=== PATIENT | male | born 1960 | race Caucasian/White ===

== ENCOUNTER 2022-05-16 12:57 | Outpatient (RCR) | payer BC, SELFPAY ==
--- OUTSIDE RECORDS SUMMARY | 2022-05-10 09:30 | XMS_ITS | Continuity of Care Document ---
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 Medications Medication Status Dose Units Route Directions Qty Days Start End Ins tructions Date Date Acetaminophen Active 325-65 MG PO Every 4 100 NO MORE THAN (Tylenol) 325 0 Hours as 400 0 MG/DAY Mg TAB needed Ferrous Active 324 MG PO Daily 100 Gluconate Omeprazole Active 20 MG PO Daily 30 Procedures Procedure Date Performed Status PET IMAGE W/CT SKULL-THIGH April 11, 2022 completed Positron emission tomography April 11, 2022 completed from base of cranium to mid-thigh Relevant Diagnostic Tests and/or Laboratory Data Laboratory Results Test Date/Time Result Interpretation Reference Result Comment Performing Range Site White Blood April 16, 3.89 5.00-10.00 [facility] Count 2021 1999 [facility] 9:32am [facility] [address] Red Blood Count April 16, 4.82 4.32-5.72 [facility] 2021 [address] [facility] 9:32am [facility] [address] Hemoglobin April 16, 13.6 13.5-17.5 [facility] 2021 [address] [facility] 9:32am [facility] [address] Hematocrit April 16, 42.3 38.8-50.0 [facility] 2021 [address] [facility] 9:32am [facility] [address] Mean April 16, 88 81-95 [facility] Corpuscular 2021 1999 [facility] Volume 9:32am [facility] [address] Mean April 16, 28 27-34 [facility] Corpuscular 2021 [address] [facility] Hemoglobin 9:32am [place] [address] Mean April 16, 32 32-36 [facility] Corpuscular 2021 [address] [facility] Hemoglobin 9:32am [place] [address] Concent Platelet Count April 16, 199 150-450 [facility] 2021 [address] [facility] 9:32am [place] [address] RDW Coefficient April 16, 15.8 11.5-15.3 [facility] of Variation 2021 [facility] 9:32am [place] [address] Neutrophils (%) April 16, 52.5 50.0-70.0 [facility] (Auto) 2021 [address] [facility] 9:32am [place] [address] Lymphocytes (%) April 16, 34.7 25.0-45.0 [facility] (Auto) 2021 [address] [facility] 9:32am [facility] [address] Monocytes (%) April 16, 10.0 0.00-11.0 [facility] (Auto) 2021 [address] [facility] 9:32am [facility] [address] Eosinophils (%) April 16, 2.3 0.0-7.0 [facility] (Auto) 2021 [address] [facility] 9:32am [place] [address] Basophils (%) April 16, 0.5 0.0-3.0 [facility] (Auto) 2021 [address] [facility] 9:32am [place] [address] Immature April 16, 0.0 [facility] Granulocyte % 2021 1999 [facility] (Auto) 9:32am [place] [address] Neutrophils # April 16, 2.04 1.70-7.00 [facility] Lab (Auto) 2021 [address] [facility] 9:32am [place] [address] Lymphocytes # April 16, 1.35 0.90-2.90 [facility] Lab (Auto) 2021 [address] [facility] 9:32am [place] [address] Monocytes # April 16, 0.39 0.30-0.90 [facility] Lab (Auto) 2021 [address] [facility] 9:32am [facility] [address] Eosinophils # April 16, 0.09 0.00-0.50 [facility] (Auto) 2021 [address] [facility] 9:32am [place] [address] Basophils # April 16, 0.02 0.00-0.20 [facility] (Auto) 2021 [address] [facility] 9:32am [place] [address] Immature April 16, 0.00 [facility] Granulocyte # 2021 [address] [facility] (Auto) 9:32am [facility] [address] Random Glucose April 16, 102 60-115 [facility] 2021 [address] [facility] 9:32am [facility] [address] Blood Urea April 16, 17 7-30 [facility] Nitrogen 2021 [address] [facility] 9:32am [facility] [address] Creatinine April 16, 1.0 0.5-1.5 [facility] 2021 [address] [facility] 9:32am [facility] [address] Estimated April 16, 62.406 [facility] Creatinine 2021 1999 [facility] Clearance 9:32am [facility] [address] Sodium Level April 16, 137 135-149 [facility] 2021 [address] [facility] 9:32am [facility] [address] Potassium Level April 16, 4.5 3.6-5.1 [facility] 2021 [address] [facility] 9:32am [facility] [address] Chloride Level April 16, 104 96-114 [facility] 2021 [address] [facility] 9:32am [facility] [address] Carbon Dioxide April 16, 27 20-32 [facility] Level 2021 [address] [facility] 9:32am [facility] [address] Calcium Level April 16, 8.6 8.4-10.6 [facility] 2021 [address] [facility] 9:32am [facility] [address] Total Protein April 16, 6.4 6.0-8.3 The use of [facility] 2021 Eltrombopag, a [address] [facility] 9:32am bone [place] [address] stimulant used to treat thrombocytopenia and aplastic anemia, interferes with this measurement of total protein. A 5% bias has been observed. Albumin April 16, 4.1 3.3-5.0 [facility] 2021 [address] [facility] 9:32am [facility] [address] Total Bilirubin April 16, 0.5 0.1-1.5 [facility] 2021 [address] [facility] 9:32am [facility] [address] Aspartate Amino April 16, 36 12-35 [facility] Transf 2021 [address] [facility] (AST/SGOT) 9:32am [place] [address] Alanine April 16, 33 4-50 [facility] Aminotransferas 2021 [address] [facility] e (ALT/SGPT) 9:32am [facility] [address] Alkaline April 16, 93 40-150 [facility] Phosphatase 2021 1999 [facility] 9:32am [facility] [address] Thyroid April 16, 1.960 0.270-4.20 Patients taking a N [facility] Stimulating 2021 0 high dose 1999 [facility] Hormone (TSH) 9:32am (>5mg/day) of No [facility] [address] Biotin supplement (vitamin B7) will demonstrate a >10% negative bias for TSH testing. Diagnostic Imaging Reports Report Dictated Date/Time Dictated By Status April 15, 2022 10:44am Joycelyn Meadows DO comp leted [facility] [address] [place] [address] ~DEPARTMENT OF DI AGNOSTIC IMAGING~ Patient: ANDRY CLARK MR #: [id number] : 1960 Age: 61 Sex: M Ordering MD: Amado Najera MD Rm/Be d: Loc: RAD Report #: [id number] Si gned DATE: 04/11/22 NM/STANDARD BODY PET/CT / Patient: ANDRY CLARK Facility:??[facility] Hafsa marcus ID:??[id number] .Site [id number].:??1960tudy:??PET -Chest/Abd/Pelvis-04/11/2022 5:48:58 PMOrdering Physician:??Dania FischerFinal Report:EXAM:PET-CT SKULL BASE TO THIGHCLINICAL INFORMATION:61-yo male wit h a history of esophageal cancer. Prior chemotherapy and radiation. Patient is r eferred for further characterization/restaging.TECHNIQUE:Rad iopharmaceutical: 14.15 mCi of 18F- FDGUptake time: 63 minutesBlood glucose level at the time of injection: 83 mg/dLField of view: Skull base to mid-th ighsIntravenous contrast: Not administeredOral contrast: Not administe redCT protocol: The low-dose, free- breathing, noncontrast CT performed as p art of this study is designed for the purposes of attenuation correction and l esion localization, and it is neither sufficient, nor it should be substituted for diagnostic purposes.COMPARISON:[facility] PET[facility]CT 09/06[facility]. [facility] chest abdomen and pelvis 08/24/2021FINDINGS:Physiologic backgroun d liver standardized uptake value (SUV mean and SUV max) reported for compariso n between PET studies: 2.8 and 3.5.Visualized head and neck: Physiologi c uptake in the visualized portions of the brain, extraocular muscles, and sali vary glands.Head and neck lymph nodes: New/increased uptake within nonenlarged left level 1 lymph nodes is nonspecific, possibly reactive/inflammatory. For exam ple:-left level 1B lymph node posterior to the mandible, 0.6 cm short axis, SUV max 3.6 (fused PET-CT image 34)-left level 1B lymph node, 0.6 cm short axis, SUV max 4.9 (fused PET-CT image 38)Lungs: No new tracer avid lung nodule s. Posteromedial left lower lobe nodule is slightly more conspicuous, 0.4 cm, MAI V max 1.0 (fused PET-CT image 108). Prior PET-CT, 0.3 cm (series 3, image 11 3). Additional sub 4 mm nodules in each lung are without significant change thou gh difficult to fully characterize given small size. Attention on follow-up.Thora cic lymph nodes: Similar nonenlarged low left neck and high mediastinal lymph nod es with mild uptake. No progressive mediastinal, hilar or axillary lymphaden opathy.Other chest findings: Physiologic myocardial uptake. Scattered coronary va scular and thoracic aortic calcifications. Right chest port with ti p positioned at the cavoatrial junction.-persistent distal esophageal w all thickening proximal to a hiatal hernia with decreased uptake, difficult to measure, SUV max 9.3 (fused PET-CT image 109). Previously reported SUV max 50. Currently, I am not able to recheck prior SUV max on the images provided for comparison. Craniocaudal extent of uptake approximately 3 cm.Hepatobiliary: No abnormal uptake.Spleen: No abnormal uptake.Pancreas: No abnormal uptake.Adre nals: No abnormal uptake.Kidneys and bladder: No abnormal uptake. Bladder is under distended giving the appearance of wall thickening.Bowel and peritoneum: No suspicious gastric, small bowel or proximal colon uptake or abnormality. Pe rsistent circumferential uptake at the level of the lower anal canal/sphincter is nonspecific, possibly physiologic, SUV max 9.6. Scattered colonic diverticu la without inflammatory change.Pelvic organs: No abnormal uptake.Abdominopelvi c lymph nodes: No hypermetabolic abdominopelvic lymph nodes.Musculoskelet al, soft tissues, skin: No suspicious osseous lesions or abnormal uptake. Rela tive photopenia within the marrow containing spaces of lower thoracic spin e be consistent with fatty marrow replacement in the setting of prior radi ation therapy degenerative uptake in both shoulders and spine.Other: Mild aor toiliac atherosclerotic vascular calcifications. Fat containing inguinal hernias. Small bilateral hydroceles.IMPRESSION:1. Distal esophage al wall thickening with decreased extent and degree of uptake compared to prior c onsistent with response to therapy. Persistent esophageal uptake may in part be due to post treatment change though residual viable tumor not excluded. No n ew hypermetabolic mediastinal, upper abdominal or retroperitoneal lymphadenop athy.2. New/increased uptake within nonenlarged left level 1B lymph nodes is considered nonspecific, possibly reactive/inflammatory. Attention on foll ow-up3. Slightly more conspicuous small nodule in the medial left lung base with out suspicious uptake.4. Persistent circumferential uptake involving the low er anal canal/sphincter is similar to priors. Correlate with physical exam and symptoms.5. No suspicious osseous uptake or abnormality. Posttherapy ornelas es with fatty marrow replacement in the lower thoracic spine.6. Other incidental findings as detailed in the body of the report.Dictated by Joycelyn Meadows MD @ 10:44:45 PMSigned by:??Joycelyn Meadows MD @04/15/2022 10:44:45 PM(Electro cleopatra Signature) Dictated By: JOYCELYN MEADOWS DO Signed By: JOYCELYN MEADOWS DO Insurance Providers Guarantor Andry Clark Address [address] [place] [id number] Contact Info. Home Phone: MARVIN Payer Policy Id Coverage Id Subscriber's Subscriber Id Effective E xpiration Name Date Date Blue [id number] Andry Clark [facility] [id number] Encounters Encounter Location(s) Arrival/Admit Date Discharge/Depart Date Provider(s) Registered [place] April 18, 2022 Giovanna Spence [facility] 7:05am Kayla LICENSE DISTRIBUTOR-C Registered [place] April 11, 2022 [facility] 1:39pm Recent Diagnosis Onset Date Adenocarcinoma of gastroesophageal junction Assessments Diagnosis Onset Date Resolution Status Adenocarcinoma of Active gastroesophageal junction
[2022-05-16 14:13] LABS: Basophils Percent Auto 0.5 % (0.0-3.0); Hematocrit 41.4 % (37.0-53.0); Hemoglobin* 13.3 gm/dL (13.5-17.5); Lymphocytes Percent Auto 35.1 % (20-44); Mean Corpuscular HGB Conc 32 gm/dL (32-36); Mean Corpuscular Hemoglobin 29 pg (26-34); Mean Corpuscular Volume 89 fL (80-100); Monocytes Percent Auto 8.5 % (0.0-11.0); Neutrophils Percent Auto 54.9 % (42.0-72.0); Platelet Count* 187 K/uL (140-440); Red Blood Count 4.67 m/uL (4.30-5.90); White Blood Count* 4.13 K/uL (4.50-11.00)
[2022-05-16 14:16] LABS: Slide Review Reflex No
[2022-05-16 14:41] LABS: Chloride* 107 mmol/L (96-114); Potassium* 3.9 mmol/L (3.6-5.1); Sodium* 136 mmol/L (135-149)
[2022-05-16 14:43] LABS: Bilirubin Total* 0.7 mg/dL (0.1-1.5); Creatinine* 0.9 mg/dL (0.5-1.5); Est. Creatinine Clearance* 61.64; Estimated Glomerular Filt Rate 96.57
[2022-05-16 14:44] LABS: Alanine Aminotransferase* 32 U/L (4-50); Alkaline Phosphatase* 83 U/L (40-150); Aspartate Amino Transferase* 34 U/L (12-35); Blood Urea Nitrogen* 22 mg/dL (7-30); Calcium* 8.8 mg/dL (8.4-10.6); Carbon Dioxide* 24 mmol/L (20-32); Glucose* 91 mg/dL (60-115); Total Protein* 6.3 g/dL (6.0-8.3)
[2022-05-16] MEDS: NIVOLUMAB 480 MG, TUBING PRIMARY 1 EACH, In-line 0.2 micron filter set 1 EACH in 0.9 % ... 148 MG IVPB (15:27)
[2022-05-18 01:34] LABS: Cortisol, Serum 6.1 ug/dL
== END 2022-05-16 23:59 | disposition home or self-care (01) ==
LOC: CCIC 12:57
PROVIDERS: Clinical Nurse Specialist; Visit Provider Nurse Practitioner Family
DX: C15.4 Malignant neoplasm of middle third of esophagus (principal)
CPT/HCPCS: 36415; 36591; 80053; 82533; 84443; 85025; 96413; 99212; 99214; J9299

== ENCOUNTER 2022-06-13 13:22 | Outpatient (RCR) | payer BC, SELFPAY ==
--- NOTE | 2022-06-10 15:09 | ONC.NURNOTE ---
Authorization: User: Gisele Bush Date: 04/18/22 07:04 Type: Eligibility Determination Note... Request received from [facility] for prior authorization of Nivolumab [id number]. Patient carries [employer] as primary insurance. Per [employer] Nivolumab has been approved for 480 Units(this equals 480 mg) per visit from 04/16/2022 through 04/18/2023. Authorization #[id number]
[2022-06-13 14:03] VITALS: BP 116/76; PULSE 54; RESP 16; TEMP 36.3; O2SAT 98
[2022-06-13 14:06] LABS: Basophils Percent Auto 0.7 % (0.0-3.0); Eosinophils Percent Auto 0.9 % (0.0-7.0); Hematocrit 39.9 % (37.0-53.0); Hemoglobin* 13.3 gm/dL (13.5-17.5); Immature Granulocytes Abs Auto 0.01 K/uL (0.00-0.30); Lymphocytes Percent Auto 31.6 % (20-44); Mean Corpuscular HGB Conc 33 gm/dL (32-36); Mean Corpuscular Hemoglobin 29 pg (26-34); Mean Corpuscular Volume 88 fL (80-100); Monocytes Percent Auto 10.1 % (0.0-11.0); Neutrophils Percent Auto 56.5 % (42.0-72.0); Platelet Count* 203 K/uL (140-440); RDW Coefficient of Variation % 14.1 % (11.5-15.5); Red Blood Count 4.54 m/uL (4.30-5.90); Slide Review Reflex No; White Blood Count* 4.34 K/uL (4.50-11.00)
[2022-06-13 14:07] LABS: Albumin* 3.9 g/dL (3.3-5.0); Chloride* 104 mmol/L (96-114); Sodium* 136 mmol/L (135-149)
[2022-06-13 14:08] LABS: Potassium* 3.7 mmol/L (3.6-5.1)
[2022-06-13 14:10] LABS: Alkaline Phosphatase* 94 U/L (40-150); Aspartate Amino Transferase* 38 U/L (12-35); Bilirubin Total* 0.5 mg/dL (0.1-1.5); Blood Urea Nitrogen* 18 mg/dL (7-30); Carbon Dioxide* 26 mmol/L (20-32); Estimated Glomerular Filt Rate 85 ml/min; Total Protein* 6.7 g/dL (6.0-8.3)
[2022-06-13 14:11] LABS: Alanine Aminotransferase* 42 U/L (4-50); Calcium* 8.9 mg/dL (8.4-10.6); Glucose* 90 mg/dL (60-115)
[2022-06-13] MEDS: NIVOLUMAB 480 MG, TUBING PRIMARY 1 EACH, In-line 0.2 micron filter set 1 EACH in 0.9 % ... 148 MG IVPB (14:56)
[2022-06-14 12:53] LABS: Cortisol, Serum 5.6 ug/dL
== END 2022-06-16 23:59 | disposition home or self-care (01) ==
LOC: CCIC 13:22
PROVIDERS: Clinical Nurse Specialist; Visit Provider Nurse Practitioner Family
DX: C16.0 Malignant neoplasm of cardia (principal)
CPT/HCPCS: 36415; 36591; 80053; 82533; 84443; 85025; 96413; J9299

== ENCOUNTER 2022-08-19 15:49 | Outpatient (CLI) | payer BC, SELFPAY ==
--- NOTE | 2022-08-19 16:00 | CRLHL7_ITS ---
For Patients: As a result of the Century Cures Act, medical imaging exams and procedure reports are released immediately into your electronic medical record. You may view this report before your referring provider. If you have questions, please contact your health care provider. Indication: Metastatic esophageal cancer Technique: Contrast CT chest abdomen and pelvis Comparison: CT chest abdomen 08/24/2021 PET-CT 04/11/2022 Findings: Normal caliber thoracic aorta. The heart size is normal. There is no pericardial effusion. There is no mediastinal or hilar adenopathy seen. There is no pleural effusion. A 3 millimeter pulmonary nodule along the right major fissure series 3, image 62 is unchanged. 9 millimeter irregular nodular density medial left lower lobe on series 3, image 75 new attention and follow-up could be an area of nodular atelectasis. Subtle 8 millimeter ground-glass nodule left lower lobe series 3, image 73 is unchanged from 08/24/2021. Again seen is distal esophageal wall thickening without significant change. The spleen adrenal glands pancreas unremarkable liver unremarkable gallbladder unremarkable. No abdominal aortic aneurysm kidneys are unremarkable. Mildly enlarged lymph node adjacent to the left of the celiac axis is no longer seen. No adenopathy is visualized. Small fat containing inguinal hernias. Prostate gland slightly prominent. Urinary bladder unremarkable the bowel is unremarkable No suspicious bony lesions are seen. Impression: 1. Distal esophageal wall thickening without change. 2. 9 millimeter irregular nodular density medial left lower lobe new could be an area of nodular atelectasis attention on follow-up. 8 millimeter ground-glass nodule left lower lobe and 3 millimeter right lower lobe pulmonary nodule are unchanged from 2020 . 3. No findings for metastatic disease in the abdomen or pelvis. Please note that all CT scans at this facility use dose modulation, iterative reconstruction, and/or weight-based dosing when appropriate to reduce radiation dose to as low as reasonably achievable. Dictated by Jena Gil MD @ 08/20/2022 9:32:45 AM (Electronically Signed)
== END 2022-08-19 15:50 | disposition home or self-care (01) ==
LOC: CT 15:50
PROVIDERS: PCP Family Medicine; Visit Provider Nurse Practitioner Family
DX: C16.0 Malignant neoplasm of cardia (principal); R91.8 Other nonspecific abnormal finding of lung field
CPT/HCPCS: 71260; 74177; Q9967

== ENCOUNTER 2022-11-22 14:56 | Outpatient (CLI) | payer BC, SELFPAY ==
--- NOTE | 2022-11-22 16:00 | CRLHL7_ITS ---
For Patients: As a result of the Century Cures Act, medical imaging exams and procedure reports are released immediately into your electronic medical record. You may view this report before your referring provider. If you have questions, please contact your health care provider. Indication: esophageal adenocarcinoma RESTAGING Technique: Postcontrast CT chest, abdomen and pelvis. 96 cc Isovue 370 intravenous contrast. Please note that all CT scans at this facility use dose modulation, iterative reconstruction, and/or weight-based dosing when appropriate to reduce radiation dose to as low as reasonably achievable. Comparison: CT 08/19/2022, CT PET 04/11/2022 Findings: In the chest, distal wall thickening of the esophagus again noted. Adjacent subcentimeter lymph nodes are similar. Stable 3 millimeter nodule right lower lobe, 3/60. Reticular thickening in the paramediastinal lung noted in both lower lobes. No suspicious underlying nodule. Mild dependent atelectasis/scarring. No pleural effusion. No pneumothorax. Visualized thyroid normal. Stable upper limits normal upper mediastinal lymph nodes. No intrinsic osseous lesion. In the abdomen, there is no intrahepatic mass. Gallbladder is normal. No calcified stones or biliary obstruction. Normal pancreas. Spleen normal. Adrenal glands unremarkable. Normal kidneys. Normal ureters. No enlarged retroperitoneal or mesenteric lymph nodes. No bowel obstruction. In the pelvis, the prostate is mildly prominent. The bladder is incompletely distended. No bladder stone. Small left inguinal hernia containing fat. Sigmoid diverticulosis. No diverticulitis. Normal appendix. No pelvic or inguinal adenopathy. Degenerative disc disease L5-S1. Impression: Radiation pneumonitis within the medial lower lobes bilaterally. No suspicious pulmonary nodule. Stable 3 millimeter right lower lobe nodule. Stable subcentimeter upper mediastinal and GE junction lymph nodes. Similar appearance of distal esophageal wall thickening. No intrahepatic mass or intra-abdominal/intrapelvic adenopathy. Please note that all CT scans at this facility use dose modulation, iterative reconstruction, and/or weight-based dosing when appropriate to reduce radiation dose to as low as reasonably achievable. Dictated by Abe Neff MD @ 11/25/2022 9:35:20 AM (Electronically Signed)
== END 2022-11-22 14:57 | disposition home or self-care (01) ==
LOC: CT 14:56
PROVIDERS: PCP Family Medicine; Visit Provider Physician Assistant
DX: C16.0 Malignant neoplasm of cardia (principal); J70.0 Acute pulmonary manifestations due to radiation; R91.1 Solitary pulmonary nodule
CPT/HCPCS: 71260; 74177; T1013; Q9967

== ENCOUNTER 2022-12-27 13:15 | Outpatient (RCR) | payer BC, SELFPAY ==
--- NOTE | 2022-07-08 16:28 | ONC.NURNOTE ---
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 Dior on FridayJul 12 at 0900 for cold symptoms, congestion, runny nose prior to his oncology appt that afternoon and infusion.
[2022-07-12 12:57] LABS: Basophils Absolute Auto 0.02 K/uL (0.00-0.30); Basophils Percent Auto 0.4 % (0.0-3.0); Eosinophils Absolute Auto 0.07 K/uL (0.00-0.50); Eosinophils Percent Auto 1.3 % (0.0-7.0); Hemoglobin* 12.8 gm/dL (13.5-17.5); Immature Granulocytes Abs Auto 0.03 K/uL (0.00-0.30); Lymphocytes Absolute Auto 1.57 K/uL (0.90-2.90); Lymphocytes Percent Auto 29.7 % (20-44); Mean Corpuscular HGB Conc 33 gm/dL (32-36); Mean Corpuscular Hemoglobin 29 pg (26-34); Mean Corpuscular Volume 88 fL (80-100); Monocytes Percent Auto 7.8 % (0.0-11.0); Neutrophils Absolute Auto 3.18 K/uL (1.7-7.0); Neutrophils Percent Auto 60.2 % (42.0-72.0); Platelet Count* 250 K/uL (140-440); RDW Coefficient of Variation % 14.3 % (11.5-15.5); Red Blood Count 4.44 m/uL (4.30-5.90); White Blood Count* 5.28 K/uL (4.50-11.00)
[2022-07-12 13:11] LABS: Slide Review Reflex No
[2022-07-12 13:26] LABS: Albumin* 3.8 g/dL (3.3-5.0); Chloride* 106 mmol/L (96-114); Potassium* 3.9 mmol/L (3.6-5.1); Sodium* 136 mmol/L (135-149)
[2022-07-12 13:28] LABS: Estimated Glomerular Filt Rate 85 ml/min
[2022-07-12 13:29] LABS: Alanine Aminotransferase* 82 U/L (4-50); Alkaline Phosphatase* 162 U/L (40-150); Aspartate Amino Transferase* 62 U/L (12-35); Bilirubin Total* 0.4 mg/dL (0.1-1.5); Blood Urea Nitrogen* 18 mg/dL (7-30); Carbon Dioxide* 26 mmol/L (20-32); Glucose* 102 mg/dL (60-115); Total Protein* 6.4 g/dL (6.0-8.3)
[2022-07-12 13:30] LABS: Calcium* 8.6 mg/dL (8.4-10.6)
[2022-07-12] MEDS: NIVOLUMAB 480 MG, TUBING PRIMARY 1 EACH, In-line 0.2 micron filter set 1 EACH in 0.9 % ... 148 MG IVPB (14:30)
[2022-07-12] MEDS: 0.9 % SODIUM CHLORIDE 250 ml IV (15:02)
[2022-07-12] MEDS: SODIUM CHLORIDE 0.9 % (FLUSH) 10 ML SYRINGE IVF (15:02)
[2022-07-12] MEDS: HEPARIN 500 UNIT/5 ML SYRINGE IVF (15:02)
[2022-07-13 17:11] LABS: Cortisol, Serum 5.5 ug/dL
--- NOTE | 2022-08-09 08:51 | ONC.NURNOTE ---
Food General Manager talked with Janis Irizarry provider from [place] regarding denied PET and plan and decided after review that patient to get CT scan and if needed after that a PET could be attempted again. Left message with daughter Kate regarding plan. Patient to come in today and get scan prior to Md appointment on August 22.
[2022-08-09 11:49] LABS: Basophils Percent Auto 0.7 % (0.0-3.0); Eosinophils Percent Auto 1.2 % (0.0-7.0); Hematocrit 40.6 % (37.0-53.0); Hemoglobin* 13.6 gm/dL (13.5-17.5); Lymphocytes Percent Auto 33.6 % (20-44); Mean Corpuscular HGB Conc 34 gm/dL (32-36); Mean Corpuscular Hemoglobin 30 pg (26-34); Mean Corpuscular Volume 88 fL (80-100); Monocytes Percent Auto 7.4 % (0.0-11.0); Neutrophils Percent Auto 57.1 % (42.0-72.0); Platelet Count* 201 K/uL (140-440); RDW Coefficient of Variation % 14.2 % (11.5-15.5); Red Blood Count 4.61 m/uL (4.30-5.90)
[2022-08-09 11:52] LABS: Slide Review Reflex No
[2022-08-09 12:10] LABS: Albumin* 4.2 g/dL (3.3-5.0); Chloride* 106 mmol/L (96-114); Potassium* 3.8 mmol/L (3.6-5.1); Sodium* 137 mmol/L (135-149)
[2022-08-09 12:12] LABS: Estimated Glomerular Filt Rate 85 ml/min
[2022-08-09 12:13] LABS: Alanine Aminotransferase* 44 U/L (4-50); Alkaline Phosphatase* 103 U/L (40-150); Aspartate Amino Transferase* 45 U/L (12-35); Bilirubin Total* 0.7 mg/dL (0.1-1.5); Blood Urea Nitrogen* 22 mg/dL (7-30); Calcium* 8.9 mg/dL (8.4-10.6); Carbon Dioxide* 25 mmol/L (20-32); Glucose* 92 mg/dL (60-115); Total Protein* 6.6 g/dL (6.0-8.3)
[2022-08-09 13:12] VITALS: BP 127/75; PULSE 53; RESP 16; TEMP 36.8; O2SAT 97
[2022-08-09] MEDS: NIVOLUMAB 480 MG, TUBING PRIMARY 1 EACH, In-line 0.2 micron filter set 1 EACH in 0.9 % ... 296 MG IVPB (13:24)
[2022-08-09] MEDS: 0.9 % SODIUM CHLORIDE 250 ml IV (13:56)
[2022-08-09] MEDS: HEPARIN 500 UNIT/5 ML SYRINGE IVF (13:56)
[2022-08-09] MEDS: SODIUM CHLORIDE 0.9 % (FLUSH) 10 ML SYRINGE IVF (13:56)
[2022-08-10 17:55] LABS: Cortisol, Serum 4.7 ug/dL
[2022-08-19] MEDS: HEPARIN 500 UNIT/5 ML SYRINGE IVF (17:21)
[2022-08-19] MEDS: SODIUM CHLORIDE 0.9 % (FLUSH) 10 ML SYRINGE IVF (17:21)
[2022-09-06 13:35] VITALS: BP 113/72; PULSE 96; RESP 16; TEMP 36.7; O2SAT 96
[2022-09-06 13:40] LABS: Basophils Absolute Auto 0.02 K/uL (0.00-0.30); Basophils Percent Auto 0.4 % (0.0-3.0); Eosinophils Absolute Auto 0.05 K/uL (0.00-0.50); Eosinophils Percent Auto 1.1 % (0.0-7.0); Hematocrit 40.5 % (37.0-53.0); Hemoglobin* 13.5 gm/dL (13.5-17.5); Lymphocytes Percent Auto 39.8 % (20-44); Mean Corpuscular HGB Conc 33 gm/dL (32-36); Mean Corpuscular Hemoglobin 30 pg (26-34); Mean Corpuscular Volume 89 fL (80-100); Monocytes Percent Auto 8.4 % (0.0-11.0); Neutrophils Absolute Auto 2.27 K/uL (1.7-7.0); Neutrophils Percent Auto 50.3 % (42.0-72.0); Platelet Count* 192 K/uL (140-440); RDW Coefficient of Variation % 14.2 % (11.5-15.5); Red Blood Count 4.54 m/uL (4.30-5.90); White Blood Count* 4.52 K/uL (4.50-11.00)
[2022-09-06 13:43] LABS: Slide Review Reflex No
[2022-09-06 13:52] LABS: Albumin* 4.1 g/dL (3.3-5.0)
[2022-09-06 13:53] LABS: Chloride* 105 mmol/L (96-114); Potassium* 3.9 mmol/L (3.6-5.1); Sodium* 136 mmol/L (135-149)
[2022-09-06 13:55] LABS: Bilirubin Total* 0.6 mg/dL (0.1-1.5); Estimated Glomerular Filt Rate 85 ml/min
[2022-09-06 13:56] LABS: Alanine Aminotransferase* 40 U/L (4-50); Alkaline Phosphatase* 91 U/L (40-150); Aspartate Amino Transferase* 43 U/L (12-35); Blood Urea Nitrogen* 23 mg/dL (7-30); Calcium* 9.1 mg/dL (8.4-10.6); Carbon Dioxide* 27 mmol/L (20-32); Glucose* 98 mg/dL (60-115); Total Protein* 6.4 g/dL (6.0-8.3)
[2022-09-06] MEDS: NIVOLUMAB 480 MG, TUBING PRIMARY 1 EACH, In-line 0.2 micron filter set 1 EACH in 0.9 % ... 148 MG IVPB (14:51)
[2022-09-06] MEDS: HEPARIN 500 UNIT/5 ML SYRINGE IVF (14:52)
[2022-09-06] MEDS: SODIUM CHLORIDE 0.9 % (FLUSH) 10 ML SYRINGE IVF (14:52)
[2022-09-06] MEDS: 0.9 % SODIUM CHLORIDE 250 ml IV (14:55)
[2022-09-07 18:46] LABS: Cortisol, Serum 4.4 ug/dL
[2022-10-04 13:20] VITALS: BP 105/68; PULSE 72; RESP 18; TEMP 37.1; O2SAT 98
[2022-10-04 13:25] LABS: Basophils Percent Auto 0.2 % (0.0-3.0); Eosinophils Percent Auto 1.2 % (0.0-7.0); Hematocrit 39.8 % (37.0-53.0); Hemoglobin* 13.3 gm/dL (13.5-17.5); Lymphocytes Percent Auto 36.4 % (20-44); Mean Corpuscular HGB Conc 33 gm/dL (32-36); Mean Corpuscular Hemoglobin 30 pg (26-34); Mean Corpuscular Volume 89 fL (80-100); Monocytes Percent Auto 7.9 % (0.0-11.0); Neutrophils Percent Auto 54.3 % (42.0-72.0); Platelet Count* 185 K/uL (140-440); RDW Coefficient of Variation % 13.7 % (11.5-15.5); Red Blood Count 4.47 m/uL (4.30-5.90); White Blood Count* 4.31 K/uL (4.50-11.00)
[2022-10-04 13:37] LABS: Slide Review Reflex No
[2022-10-04 13:38] LABS: Albumin* 4.1 g/dL (3.3-5.0); Chloride* 109 mmol/L (96-114); Sodium* 137 mmol/L (135-149)
[2022-10-04 13:41] LABS: Alanine Aminotransferase* 30 U/L (4-50); Alkaline Phosphatase* 72 U/L (40-150); Aspartate Amino Transferase* 34 U/L (12-35); Bilirubin Total* 0.8 mg/dL (0.1-1.5); Blood Urea Nitrogen* 16 mg/dL (7-30); Carbon Dioxide* 26 mmol/L (20-32); Estimated Glomerular Filt Rate 85 ml/min; Total Protein* 6.5 g/dL (6.0-8.3)
[2022-10-04 13:42] LABS: Calcium* 8.5 mg/dL (8.4-10.6); Glucose* 92 mg/dL (60-115)
[2022-10-04] MEDS: NIVOLUMAB 480 MG, TUBING PRIMARY 1 EACH, In-line 0.2 micron filter set 1 EACH in 0.9 % ... 296 MG IVPB (14:46)
[2022-10-04] MEDS: 0.9 % SODIUM CHLORIDE 250 ml IV (14:46)
[2022-10-04] MEDS: SODIUM CHLORIDE 0.9 % (FLUSH) 10 ML SYRINGE IVF ×2 (14:46→15:18)
[2022-10-04] MEDS: HEPARIN 500 UNIT/5 ML SYRINGE IVF (15:18)
[2022-11-01 13:31] VITALS: BP 122/79; PULSE 56; RESP 16; TEMP 36.6; O2SAT 95
[2022-11-01 14:25] LABS: Albumin* 4.2 g/dL (3.3-5.0)
[2022-11-01 14:26] LABS: Chloride* 108 mmol/L (96-114); Potassium* 3.7 mmol/L (3.6-5.1); Sodium* 138 mmol/L (135-149)
[2022-11-01 14:28] LABS: Bilirubin Total* 0.7 mg/dL (0.1-1.5); Estimated Glomerular Filt Rate 85 ml/min
[2022-11-01 14:29] LABS: Alanine Aminotransferase* 40 U/L (4-50); Alkaline Phosphatase* 88 U/L (40-150); Aspartate Amino Transferase* 38 U/L (12-35); Blood Urea Nitrogen* 15 mg/dL (7-30); Calcium* 8.7 mg/dL (8.4-10.6); Carbon Dioxide* 24 mmol/L (20-32); Glucose* 86 mg/dL (60-115); Total Protein* 6.8 g/dL (6.0-8.3)
[2022-11-01 14:33] LABS: Basophils Percent Auto 0.5 % (0.0-3.0); Hematocrit 42.6 % (37.0-53.0); Hemoglobin* 14.1 gm/dL (13.5-17.5); Immature Granulocytes Pct Auto 0.2 %; Mean Corpuscular HGB Conc 33 gm/dL (32-36); Mean Corpuscular Hemoglobin 29 pg (26-34); Mean Corpuscular Volume 89 fL (80-100); Monocytes Percent Auto 7.7 % (0.0-11.0); Neutrophils Percent Auto 53.6 % (42.0-72.0); Platelet Count* 189 K/uL (140-440); RDW Coefficient of Variation % 13.3 % (11.5-15.5); Red Blood Count 4.81 m/uL (4.30-5.90); Slide Review Reflex No; White Blood Count* 4.14 K/uL (4.50-11.00)
[2022-11-01] MEDS: NIVOLUMAB 480 MG, TUBING PRIMARY 1 EACH, In-line 0.2 micron filter set 1 EACH in 0.9 % ... 296 MG IVPB (15:19)
--- NOTE | 2022-11-01 16:18 | ONC.NURNOTE ---
Pt here today for Opdivo. Notes occasional nausea ~1x/week; not correlated to eating, drinking or activity. Denies symptoms of heartburn; takes Omeprazole. Has stable throat soreness with swallowing over the last several months; no worsening. Reviewed with Christie; plan to prescribe Compazine PRN. Leroy Wayne deaf interpreter to call pt to review plan this afternoon.
[2022-11-03 15:59] LABS: Cortisol, Serum 5.3 ug/dL
[2022-11-22] MEDS: SODIUM CHLORIDE 0.9 % (FLUSH) 10 ML SYRINGE IVF (16:09)
[2022-11-22] MEDS: HEPARIN 500 UNIT/5 ML SYRINGE IVF (16:09)
[2022-11-28 13:33] LABS: Basophils Percent Auto 0.5 % (0.0-3.0); Hematocrit 40.7 % (37.0-53.0); Hemoglobin* 13.5 gm/dL (13.5-17.5); Lymphocytes Percent Auto 35.7 % (20-44); Mean Corpuscular HGB Conc 33 gm/dL (32-36); Mean Corpuscular Hemoglobin 29 pg (26-34); Mean Corpuscular Volume 89 fL (80-100); Monocytes Percent Auto 8.6 % (0.0-11.0); Neutrophils Percent Auto 54.2 % (42.0-72.0); Platelet Count* 197 K/uL (140-440); RDW Coefficient of Variation % 13.8 % (11.5-15.5); White Blood Count* 4.09 K/uL (4.50-11.00)
[2022-11-28 13:34] LABS: Slide Review Reflex No
[2022-11-28 13:43] LABS: Albumin* 4.1 g/dL (3.3-5.0)
[2022-11-28 13:44] LABS: Chloride* 109 mmol/L (96-114); Potassium* 3.9 mmol/L (3.6-5.1); Sodium* 138 mmol/L (135-149)
[2022-11-28 13:46] LABS: Alkaline Phosphatase* 82 U/L (40-150); Aspartate Amino Transferase* 39 U/L (12-35); Bilirubin Total* 0.8 mg/dL (0.1-1.5); Blood Urea Nitrogen* 18 mg/dL (7-30); Carbon Dioxide* 25 mmol/L (20-32); Creatinine* 1.1 mg/dL (0.5-1.5); Estimated Glomerular Filt Rate 75 ml/min; Total Protein* 6.4 g/dL (6.0-8.3)
[2022-11-28 13:47] LABS: Alanine Aminotransferase* 45 U/L (4-50); Calcium* 8.6 mg/dL (8.4-10.6); Glucose* 83 mg/dL (60-115)
[2022-11-28] MEDS: NIVOLUMAB 480 MG, TUBING PRIMARY 1 EACH, In-line 0.2 micron filter set 1 EACH in 0.9 % ... 148 MG IVPB (14:54)
[2022-11-28] MEDS: HEPARIN 500 UNIT/5 ML SYRINGE IVF (15:27)
[2022-11-28] MEDS: SODIUM CHLORIDE 0.9 % (FLUSH) 10 ML SYRINGE IVF (15:27)
[2022-11-29 23:57] LABS: Cortisol, Serum 4.8 ug/dL
[2022-12-27 13:15] VITALS: BP 108/72; PULSE 74; RESP 16; TEMP 36.7; O2SAT 95
[2022-12-27 13:31] VITALS: BP 108/72; PULSE 74; RESP 16; TEMP 36.7; O2SAT 95
[2022-12-27 13:31] LABS: Basophils Absolute Auto 0.03 K/uL (0.00-0.30); Basophils Percent Auto 0.6 % (0.0-3.0); Eosinophils Absolute Auto 0.04 K/uL (0.00-0.50); Eosinophils Percent Auto 0.8 % (0.0-7.0); Hematocrit 42.6 % (37.0-53.0); Hemoglobin* 14.1 gm/dL (13.5-17.5); Lymphocytes Absolute Auto 1.48 K/uL (0.90-2.90); Mean Corpuscular HGB Conc 33 gm/dL (32-36); Mean Corpuscular Hemoglobin 29 pg (26-34); Mean Corpuscular Volume 88 fL (80-100); Neutrophils Percent Auto 62.6 % (42.0-72.0); Platelet Count* 194 K/uL (140-440); RDW Coefficient of Variation % 13.6 % (11.5-15.5); Red Blood Count 4.83 m/uL (4.30-5.90); White Blood Count* 5.11 K/uL (4.50-11.00)
[2022-12-27 13:32] LABS: Slide Review Reflex No
[2022-12-27 13:45] LABS: Chloride* 107 mmol/L (96-114)
[2022-12-27 13:46] LABS: Albumin* 4.2 g/dL (3.3-5.0); Potassium* 3.8 mmol/L (3.6-5.1); Sodium* 138 mmol/L (135-149)
[2022-12-27 13:49] LABS: Alanine Aminotransferase* 53 U/L (4-50); Alkaline Phosphatase* 82 U/L (40-150); Aspartate Amino Transferase* 40 U/L (12-35); Bilirubin Total* 0.9 mg/dL (0.1-1.5); Blood Urea Nitrogen* 17 mg/dL (7-30); Calcium* 8.8 mg/dL (8.4-10.6); Carbon Dioxide* 26 mmol/L (20-32); Creatinine* 1.2 mg/dL (0.5-1.5); Estimated Glomerular Filt Rate 68 ml/min; Glucose* 100 mg/dL (60-115); Total Protein* 6.7 g/dL (6.0-8.3)
[2022-12-27] MEDS: NIVOLUMAB 480 MG, TUBING PRIMARY 1 EACH, In-line 0.2 micron filter set 1 EACH in 0.9 % ... 300 MG IVPB (14:29)
[2022-12-27] MEDS: 0.9 % SODIUM CHLORIDE 250 ml IV (15:26)
[2022-12-27] MEDS: HEPARIN 500 UNIT/5 ML SYRINGE IVF (15:27)
[2022-12-27] MEDS: SODIUM CHLORIDE 0.9 % (FLUSH) 10 ML SYRINGE IVF (15:27)
[2022-12-28 22:14] LABS: Cortisol, Serum 6.7 ug/dL
== END 2023-01-08 23:59 | disposition home or self-care (01) ==
LOC: CCIC 13:15
PROVIDERS: Clinical Nurse Specialist; PCP Family Medicine; Referring Provider Family Medicine; Visit Provider Physician Assistant
DX: C16.0 Malignant neoplasm of cardia (principal)
CPT/HCPCS: 36415; 36591; 80053; 82533; 84443; 85025; 96413; 99211; 99212; 99213; 99214; 99215; T1013; J1642; J7050; J9299

== ENCOUNTER 2023-03-03 15:51 | Outpatient (CLI) | payer BC, SELFPAY ==
--- NOTE | 2023-03-03 16:00 | CRLHL7_ITS ---
For Patients: As a result of the Century Cures Act, medical imaging exams and procedure reports are released immediately into your electronic medical record. You may view this report before your referring provider. If you have questions, please contact your health care provider. Indication: metastatic esophageal adenocarcinoma, assess treatment response Technique: Postcontrast CT chest, abdomen and pelvis. 97 cc Isovue 370 intravenous contrast. Please note that all CT scans at this facility use dose modulation, iterative reconstruction, and/or weight-based dosing when appropriate to reduce radiation dose to as low as reasonably achievable. Comparison: 11/22/2022 Findings: In the lungs, stable 3 millimeter nodule right lower lobe adjacent to the fissure, 3/64. No additional nodule. Chronic radiation pneumonitis changes within paramediastinal lungs bilaterally adjacent to the lower distal esophagus. Circumferential wall thickening of the esophagus distally again noted with adjacent subcentimeter lymph nodes. Stable subcentimeter mediastinal lymph nodes are present. No enlarged hilar or axillary lymph nodes. Right-sided Port-A-Cath. No pleural effusion or pulmonary edema. No pneumothorax or infiltrate. No pericardial effusion. In the abdomen, there is no intrahepatic mass. The spleen is within normal limits. Normal adrenal glands. No hydronephrosis or stone. No perinephric stranding. Gallbladder is similar. Normal pancreas. Similar appearance of the GE junction. No enlarged retroperitoneal lymph nodes. No mesenteric adenopathy. In the pelvis, the prostate is mildly prominent with lobular mass effect upon the inferior bladder wall. No bladder stone. No bowel obstruction or free air. No free fluid. Appendix normal. No abscess. No pelvic or inguinal adenopathy. Ureters appear normal. Degenerative changes are present. There is no fracture. Impression: No significant interval change in the circumferential wall thickening of the distal esophagus with adjacent subcentimeter lymph nodes and subcentimeter mediastinal lymph nodes. Stable post treatment changes to the paramediastinal lung parenchyma. Stable 3 millimeter right lower lobe pulmonary nodule. No metastatic disease within the abdomen or pelvis. Please note that all CT scans at this facility use dose modulation, iterative reconstruction, and/or weight-based dosing when appropriate to reduce radiation dose to as low as reasonably achievable. Dictated by Abe Neff MD @ 03/04/2023 12:34:40 PM (Electronically Signed)
[2023-03-03 16:27] LABS: Estimated Glomerular Filt Rate 85 ml/min
== END 2023-03-03 15:52 | disposition home or self-care (01) ==
LOC: CT 15:51
PROVIDERS: PCP Family Medicine; Visit Provider Physician Assistant
DX: C16.0 Malignant neoplasm of cardia (principal); R91.8 Other nonspecific abnormal finding of lung field
CPT/HCPCS: 36415; 71260; 74177; 82565; T1013; Q9967

== ENCOUNTER 2023-03-14 13:14 | Emergency (ER) | payer BC, SELFPAY ==
[2023-03-14 13:20] VITALS: BP 128/77; PULSE 63; RESP 20; TEMP 36.6; O2SAT 97; BMI 32.0
--- NOTE | 2023-03-14 13:46 | ED.CHESTPAIN ---
HPI - Chest Pain General Date Seen: 03/14/23 Chief Complaint: Difficulty Swallowing Stated Complaint: Difficulty Swallowing Time Seen by Provider: 03/14/23 13:16 Source: patient and family Mode of arrival: ambulatory Limitations: no limitations History of Present Illness HPI narrative: Patient is a 62-year-old gentleman who was eating rice and chicken earlier today, felt the gets stuck in his throat, he has a history of adenocarcinoma of the GE junction. This is been stabilized, as he has recently saw his oncologist, he has had these problems in the past, presents here to the ER, with spitting up, and said he has an inability to swallow. MD complaint: chest discomfort Prior episodes: Yes Treatment prior to arrival: none Related Data Home Medications Medication Instructions Recorded Confirmed ferrous sulfate 325 mg (65 mg 325 mg PO DAILY 05/14/22 03/06/23 iron) tablet (iron) omeprazole 20 mg capsule,delayed 20 mg PO DAILY 05/14/22 03/06/23 release acetaminophen 500 mg tablet 500 mg PO Q6H PRN 08/22/22 03/06/23 (Tylenol Extra Strength) Previous Rx's Medication Instructions Recorded amlodipine 5 mg tablet 5 mg PO QDAY #90 tabs 07/15/22 prochlorperazine maleate 10 mg 10 mg PO TID PRN nausea #30 tabs 11/01/22 tablet omeprazole 20 mg capsule,delayed 20 mg PO DAILY #30 caps 03/14/23 release Allergies Allergy/AdvReac Type Severity Reaction Status Date / Time No Known Allergies Allergy Verified 03/06/23 14:49 Review of Systems Status of ROS Reports: 10 or more systems reviewed and unremarkable except as noted in History and below [facility] Medical History Adenomatous polyp ?D36.9 - Benign neoplasm, unspecified site (ICD-10) Anal fissure and fistula ?K60.2 - Anal fissure, unspecified (ICD-10) ?K60.3 - Anal fistula (ICD-10) Iron deficiency anemia ?D50.9 - Iron deficiency anemia, unspecified (ICD-10) Family History Father Cancer Sister Diabetes Social History Narrative: . Works in [email or web address]. Has a daughter in [place]. Two children. No regular exercise. No tobacco or recreational drug use. alcohol use is about 6 drinks per month. Smoking Status: Former smoker Do you use any of these nicotine containing products: None Second hand tobacco smoke exposure: No How often do you have a drink containing alcohol: 2-3 times a week How many standard drinks containing alcohol do you have on a typical day: 1 or 2 How often do you have six or more drinks on one occasion: Never AUDIT-C Alcohol total score: 3 Non-prescribed substance use: denies use Little interest or pleasure in doing things: not at all Feeling down, depressed, or hopeless: not at all service: No Exam Narrative Exam Narrative: I find him in room 1, with an historic interpreter, he is in no apparent distress, he is able to drink water any drank half a cup of water without a problem, he feels that it may have gone away knee may be able to swallow now. Pupils are equal round reactive to light there is no scleral icterus redness is oropharynx is otherwise normal, neck is supple, chest is good air entry bilaterally no wheezing crackles noted heart sounds are normal his abdomen is soft. Will continue to watch him, he will drink some more water, if he is able to keep fluids down then follow-up with Oncology, he may need a dilatation if this becomes more frequent. Const Vital Signs, click to edit/add: Vital Signs - 24 hr 03/14/23 13:20 Temperature 97.9 F Pulse Rate [Pulse Oximeter] 63 Respiratory Rate 20 Blood Pressure [Right Upper Arm] 128/77 Pulse Oximetry 97 Oxygen Delivery Method Room Air Documenting provider has reviewed patient's vital signs: yes Course Course Hospital Course: Patient was able to drink water with no problems at all he feels much improved and is requesting to go home. At this point I think we can discharge him home with a clear fluid diet over the weekend, with him to follow-up with [facility], I will also would like him to restart his Prilosec 20 mg a day, he has problems with food getting caught or other issues over the course of the week and then he can come back, this is communicated through the historic interpreter. Vital Signs Vital signs: Initial Vital Signs Temperature 97.9 F 03/14/23 13:20 Temperature Source Temporal Artery Scan 03/14/23 13:20 Pulse Rate 63 03/14/23 13:20 Pulse Rhythm Regular 03/14/23 13:20 Respiratory Rate 20 03/14/23 13:20 Blood Pressure 128/77 03/14/23 13:20 Blood Pressure Mean 94 03/14/23 13:20 Blood Pressure Position Supine 03/14/23 13:20 Pulse Oximetry 97 03/14/23 13:20 Oxygen Delivery Method Room Air 03/14/23 13:20 Vital Signs Temperature 97.9 F 03/14/23 13:20 Pulse Rate 63 03/14/23 13:20 Respiratory Rate 20 03/14/23 13:20 Blood Pressure 128/77 03/14/23 13:20 Pulse Oximetry 97 03/14/23 13:20 Oxygen Delivery Method Room Air 03/14/23 13:20 Temperature 97.9 F 03/14/23 13:20 Pulse Rate 63 03/14/23 13:20 Respiratory Rate 20 03/14/23 13:20 Blood Pressure 128/77 03/14/23 13:20 Pulse Oximetry 97 03/14/23 13:20 Oxygen Delivery Method Room Air 03/14/23 13:20 MDM - Chest Pain MDM Narrative Medical decision making narrative: During the evaluation of this patient I considered multiple differential diagnosis is. The life-threatening differential diagnosis include coronary disease/ND, pulmonary embolism, pneumothorax, pneumonia, and aortic dissection. Other differential diagnosis included but were not limited to pericarditis, myocarditis, chest wall pain, GERD, esophageal rupture, rib fracture contusion, pleurisy, as well as other etiologies. Discharge Plan Discharge Clinical Impression: Food impaction of esophagus, GERD (gastroesophageal reflux disease), Adenocarcinoma of gastroesophageal junction Patient Disposition: Home w/ Parent or Adult Condition: Improved Instructions: Food Impaction (ED) Additional Instructions: Home rest, clear fluid diet over the course of the weekend, call the [facility] on Friday and apprised them of your progress, I would also take the Prilosec 20 mg a day for the next 2 weeks, to decrease the acid production, return here if problems swallowing, food or liquids get caught. Prescriptions: New omeprazole 20 mg capsule,delayed release(DR/EC) 20 mg PO DAILY Qty: 30 2RF No Action amlodipine 5 mg tablet 5 mg PO QDAY Qty: 90 3RF acetaminophen [Tylenol Extra Strength] 500 mg tablet 500 mg PO Q6H PRN ferrous sulfate [iron] 325 mg (65 mg iron) tablet 325 mg PO DAILY omeprazole 20 mg capsule,delayed release(DR/EC) 20 mg PO DAILY prochlorperazine maleate 10 mg tablet 10 mg PO TID MDD 3 PRN (Reason: nausea) Qty: 30 1RF Follow Up/Referrals: Robe Alvarado MD [Primary Care Provider] - Stand Alone Forms: [employer] Info Instructions
== END 2023-03-14 14:55 | disposition home or self-care (01) ==
PROVIDERS: Emergency Provider Family Medicine; PCP Family Medicine
DX: T17.228A Food in pharynx causing other injury, initial encounter (principal); C16.0 Malignant neoplasm of cardia; K21.9 Gastro-esophageal reflux disease without esophagitis
CPT/HCPCS: 99283; 99284; T1013

== ENCOUNTER 2023-06-02 15:00 | Outpatient (CLI) | payer BC, SELFPAY ==
--- NOTE | 2023-06-02 16:00 | CRLHL7_ITS ---
For Patients: As a result of the Century Cures Act, medical imaging exams and procedure reports are released immediately into your electronic medical record. You may view this report before your referring provider. If you have questions, please contact your health care provider. INDICATION: Metastatic esophageal adenocarcinoma. Follow-up. Restaging. TECHNIQUE: 93 cc nonionic Isovue-370 administered. COMPARISON : March 03, 2023. FINDINGS: CT chest: Right-sided Port-A-Cath its lead tip in superior vena cava. Stable 3 mm willy fissural nodule right mid lung image 65 series 4. Minor postradiation type changes paramediastinal lower lobes of each lung. Minimal ground-glass opacity at the extreme left lung base image 80 series 4 measuring 1.5 x 2.2 cm new from the prior study. However this is still more likely postinfectious or postinflammatory in nature. This can be followed. [id number] circumferential wall thickening of the distal esophagus. No hilar or mediastinal lymphadenopathy. Normal caliber thoracic aorta. The trachea and mainstem bronchi are patent and clear. There are no pleural or pericardial effusions. CT of the abdomen and pelvis: Normal-appearing liver, spleen, pancreas, gallbladder, adrenal glands, and kidneys. No evidence for abdominal pelvic lymphadenopathy or ascites. The stomach and duodenum although incompletely distended are normal. The small and large bowel are within normal limits. The urinary bladder, prostate gland, and seminal vesicles are unremarkable. The included skeleton is negative for metastatic disease. Degenerative disc disease at L5. IMPRESSION: 1. Circumferential wall thickening of the distal esophagus. 2. Subtle postradiation changes at the lung bases in a paramediastinal distribution. 3. New more focal ground-glass infiltrate at the extreme left lung base likely of a benign etiology, postinfectious or postinflammatory in nature. 4. No thoraco abdominal or pelvic lymphadenopathy. Please note that all CT scans at this facility use dose modulation, iterative reconstruction, and/or weight-based dosing when appropriate to reduce radiation dose to as low as reasonably achievable. Dictated by Juan Alexander MD @ 06/03/2023 6:38:20 AM (Electronically Signed)
== END 2023-06-02 15:01 | disposition home or self-care (01) ==
LOC: CT 15:01
PROVIDERS: PCP Family Medicine; Visit Provider Physician Assistant
DX: C16.0 Malignant neoplasm of cardia (principal); D50.9 Iron deficiency anemia, unspecified
CPT/HCPCS: 71260; 74177; Q9967

== ENCOUNTER 2023-06-05 15:00 | Outpatient (RCR) | payer BC, SELFPAY ==
[2023-01-24 13:15] VITALS: BP 122/76; PULSE 55; RESP 16; TEMP 37; O2SAT 96
[2023-01-24 13:46] LABS: Basophils Absolute Auto 0.02 K/uL (0.00-0.30); Basophils Percent Auto 0.4 % (0.0-3.0); Eosinophils Absolute Auto 0.03 K/uL (0.00-0.50); Eosinophils Percent Auto 0.6 % (0.0-7.0); Hematocrit 39.9 % (37.0-53.0); Hemoglobin* 13.3 gm/dL (13.5-17.5); Lymphocytes Absolute Auto 1.79 K/uL (0.90-2.90); Lymphocytes Percent Auto 37.9 % (20-44); Mean Corpuscular HGB Conc 33 gm/dL (32-36); Mean Corpuscular Hemoglobin 29 pg (26-34); Mean Corpuscular Volume 88 fL (80-100); Monocytes Percent Auto 8.5 % (0.0-11.0); Neutrophils Absolute Auto 2.48 K/uL (1.7-7.0); Neutrophils Percent Auto 52.6 % (42.0-72.0); Platelet Count* 203 K/uL (140-440); RDW Coefficient of Variation % 13.5 % (11.5-15.5); Red Blood Count 4.54 m/uL (4.30-5.90); White Blood Count* 4.72 K/uL (4.50-11.00)
[2023-01-24 13:50] LABS: Slide Review Reflex No
[2023-01-24 14:00] LABS: Chloride* 108 mmol/L (96-114); Sodium* 137 mmol/L (135-149)
[2023-01-24 14:03] LABS: Alanine Aminotransferase* 46 U/L (4-50); Alkaline Phosphatase* 90 U/L (40-150); Aspartate Amino Transferase* 37 U/L (12-35); Bilirubin Total* 0.7 mg/dL (0.1-1.5); Blood Urea Nitrogen* 14 mg/dL (7-30); Carbon Dioxide* 24 mmol/L (20-32); Estimated Glomerular Filt Rate 85 ml/min; Glucose* 102 mg/dL (60-115); Total Protein* 6.4 g/dL (6.0-8.3)
[2023-01-24 14:04] LABS: Calcium* 8.5 mg/dL (8.4-10.6)
[2023-01-24] MEDS: NIVOLUMAB 480 MG, TUBING PRIMARY 1 EACH, In-line 0.2 micron filter set 1 EACH in 0.9 % ... 148 MG IVPB (14:33)
[2023-01-24 14:42] LABS: Thyroid Stimulating Hormone* 0.812 uIU/mL (0.270-4.20)
[2023-01-25 23:58] LABS: Cortisol, Serum 6.4 ug/dL
[2023-03-03] MEDS: SODIUM CHLORIDE 0.9 % (FLUSH) 10 ML SYRINGE IVF (16:20)
[2023-03-03] MEDS: HEPARIN 500 UNIT/5 ML SYRINGE IVF (16:20)
[2023-04-25] MEDS: HEPARIN 500 UNIT/5 ML SYRINGE IVF (15:41)
[2023-04-25] MEDS: SODIUM CHLORIDE 0.9 % (FLUSH) 10 ML SYRINGE IVF (15:41)
[2023-06-02 15:03] LABS: Basophils Absolute Auto 0.01 K/uL (0.00-0.30); Basophils Percent Auto 0.2 % (0.0-3.0); Eosinophils Absolute Auto 0.03 K/uL (0.00-0.50); Eosinophils Percent Auto 0.6 % (0.0-7.0); Hematocrit 42.4 % (37.0-53.0); Immature Granulocytes Abs Auto 0.03 K/uL (0.00-0.30); Immature Granulocytes Pct Auto 0.6 %; Lymphocytes Percent Auto 32.7 % (20-44); Mean Corpuscular HGB Conc 33 gm/dL (32-36); Mean Corpuscular Hemoglobin 29 pg (26-34); Mean Corpuscular Volume 87 fL (80-100); Monocytes Percent Auto 6.9 % (0.0-11.0); Neutrophils Absolute Auto 2.89 K/uL (1.7-7.0); Platelet Count* 196 K/uL (140-440); Red Blood Count 4.85 m/uL (4.30-5.90)
[2023-06-02 15:05] LABS: Slide Review Reflex No
[2023-06-02 15:23] LABS: Chloride* 104 mmol/L (96-114); Potassium* 3.5 mmol/L (3.6-5.1); Sodium* 137 mmol/L (135-149)
[2023-06-02 15:25] LABS: Aspartate Amino Transferase* 34 U/L (12-35); Bilirubin Total* 0.8 mg/dL (0.1-1.5); Carbon Dioxide* 25 mmol/L (20-32); Estimated Glomerular Filt Rate 85 ml/min; Total Protein* 6.7 g/dL (6.0-8.3)
[2023-06-02 15:26] LABS: Alanine Aminotransferase* 37 U/L (4-50); Alkaline Phosphatase* 83 U/L (40-150); Blood Urea Nitrogen* 18 mg/dL (7-30); Calcium* 8.6 mg/dL (8.4-10.6); Glucose* 84 mg/dL (60-115)
[2023-06-02 18:01] LABS: Iron* 85 ug/dL (49-181)
[2023-06-02 18:10] LABS: Percent Iron Saturation 27 % (20-50); Total Iron Binding Capacity 319 ug/dL (261-462)
== END 2023-07-23 23:59 | disposition home or self-care (01) ==
LOC: CCIC 15:00
PROVIDERS: Internal Medicine Hematology & Oncology; Physician Assistant; PCP Family Medicine; Referring Provider Family Medicine; Visit Provider Internal Medicine Hematology & Oncology
DX: C16.0 Malignant neoplasm of cardia (principal); D50.9 Iron deficiency anemia, unspecified; K21.9 Gastro-esophageal reflux disease without esophagitis
CPT/HCPCS: 36415; 36591; 80053; 82533; 83540; 83550; 84443; 85025; 96413; 99211; 99212; 99213; 99214; T1013; J1642; J9299

== ENCOUNTER 2023-09-01 15:01 | Outpatient (CLI) | payer BC, SELFPAY ==
--- NOTE | 2023-09-01 16:00 | CRLHL7_ITS ---
For Patients: As a result of the Century Cures Act, medical imaging exams and procedure reports are released immediately into your electronic medical record. You may view this report before your referring provider. If you have questions, please contact your health care provider. INDICATION: Metastatic esophageal adenocarcinoma. Follow-up. Restaging. TECHNIQUE: Contrast-enhanced CT of the chest abdomen and pelvis. 95 cc nonionic Isovue administered. COMPARISON : June 02, 2023. FINDINGS: CT chest: Again noted is circumferential thickening of the distal esophagus extending to the gastric cardia. Progressive bilateral old infiltrates with volume loss and air bronchograms with a small infiltrate in the posterior right middle lobe of the lung as well. Previously there were only minimal ground-glass opacities at the lung bases. This may be related to infection or inflammation. A response to radiation therapy could not be excluded if radiation therapy has been performed recently. The lungs are otherwise clear. No thoracic lymphadenopathy. Right-sided Port-A-Cath with lead tip in the superior vena cava. CT of the abdomen and pelvis: The liver, spleen, pancreas, gallbladder, both adrenal glands and both kidneys are within normal limits. Normal caliber abdominal aorta and iliac arteries containing trace vascular calcification. Normal inferior vena cava. The small large bowel are within normal limits. No bowel obstruction ileus. No ascites or lymphadenopathy. Slight prostatic enlargement with prostatic calcifications. Normal seminal vesicles and largely decompressed urinary bladder. No lytic or blastic lesions of the included skeleton. Degenerative disc disease at L5 unchanged. IMPRESSION: 1. New dense infiltrates within both lower lobes and posterior right middle lobe. This may be related to recent infection or inflammation. If there has been recent radiation therapy, that could be an alternate explanation. Clinical correlation recommended. 2. Mildly circumferentially thick-walled mid distal esophagus extending to the gastric cardia compatible with the patient`s reported malignancy. No progression. 3. No evidence for metastatic disease below the diaphragm or within the included skeleton. Specifically no lymphadenopathy is identified. Please note that all CT scans at this facility use dose modulation, iterative reconstruction, and/or weight-based dosing when appropriate to reduce radiation dose to as low as reasonably achievable. Dictated by Juan Alexander MD @ 09/02/2023 11:49:40 AM (Electronically Signed)
== END 2023-09-01 15:02 | disposition home or self-care (01) ==
PROVIDERS: PCP Family Medicine; Visit Provider Internal Medicine Hematology & Oncology
DX: C16.0 Malignant neoplasm of cardia (principal)
CPT/HCPCS: 71260; 74177; T1013; Q9967

== ENCOUNTER 2023-09-25 12:23 | Outpatient (CLI) | payer BC, SELFPAY ==
--- NOTE | 2023-09-25 13:00 | CRLHL7_ITS ---
For Patients: As a result of the Century Cures Act, medical imaging exams and procedure reports are released immediately into your electronic medical record. You may view this report before your referring provider. If you have questions, please contact your health care provider. INDICATION: Follow up neoplasm of the gastric cardia TECHNIQUE : Abdominal MRI. T1 in phase and out of phase. T2 weighted imaging and diffusion/ADC. Fat suppressed T1 weighted images obtained after injection of IV gadolinium. 18 cc DOTAREM IV. COMPARISON : CT scan chest abdomen and pelvis 09/01/2023 FINDINGS : Liver: Non cirrhotic morphology with no masses or lesions. Biliary tree: Normal caliber and unremarkable gallbladder. Pancreas adrenal glands spleen, kidneys: Unremarkable Lymph nodes: No suspicious enlargement. No adenopathy in the gastrohepatic ligament. Miscellaneous: Large amount of increased signal intensity in the lung bases corresponding to areas of dense alveolar airspace disease on the CT scan. Ascites: Absent. IMPRESSION : 1. No signs of metastatic lesion in the liver or upper abdomen. 2. No adenopathy. 3. Dense bibasilar alveolar airspace disease which persists since the most recent CT scan. Dictated by Ellis Brizuela MD @ 09/30/2023 1:14:15 PM (Electronically Signed)
== END 2023-09-25 12:24 | disposition home or self-care (01) ==
LOC: MRI 12:29
PROVIDERS: PCP Family Medicine; Visit Provider Internal Medicine Hematology & Oncology
DX: C16.0 Malignant neoplasm of cardia (principal)
CPT/HCPCS: 74183; T1013; A9575

== ENCOUNTER 2023-09-28 10:04 | Emergency (ER) | payer BC, SELFPAY ==
[2023-09-28 10:09] VITALS: BP 125/77; PULSE 55; RESP 18; TEMP 36.7; O2SAT 96; BMI 28.7
--- NOTE | 2023-09-28 10:16 | ED.NAVMDI ---
HPI - Nausea/Vomiting/Diarrhea General Time Seen by Provider: 10:16 Date Seen: 09/28/23 Chief complaint: Nausea/Vomiting Stated complaint: Nauseous, vomit Time Seen by Provider: 09/28/23 10:08 Source: patient, RN notes reviewed, old records reviewed and sales analytics manager Mode of arrival: ambulatory Limitations: no limitations History of Present Illness HPI Narrative: Patient is a 62-year-old male coming in telling me he has hiccups. He told other staff on intake that he was having nausea and some vomiting. He tells me it is the hiccups that are bringing him in. He believes that the contrast that he received on September 25 for his abdominal MRI induced hiccups. He states he is having difficulty sleeping because of the hiccups. He is not having any increased pain, no chest pain, no cough, no shortness of breath. He has had no fevers. Brief review of his records initially shows that he has metastatic gastroesophageal adenocarcinoma that seems to be stable. He did just have an MRI of his abdomen on 09/25/2023 which is not been read yet. Patient is already on omeprazole. [facility]. Related Data Home Medications Medication Instructions Recorded Confirmed acetaminophen 500 mg tablet 500 mg PO Q6H PRN 08/22/22 09/03/23 (Tylenol Extra Strength) Previous Rx's Medication Instructions Recorded amlodipine 5 mg tablet 5 mg PO QDAY #90 tabs 09/16/23 omeprazole 20 mg capsule,delayed 20 mg PO BID #240 caps 09/17/23 release gabapentin 100 mg capsule 100 mg PO TID #15 caps 09/28/23 ondansetron 4 mg disintegrating 4 mg PO Q6H PRN nausea and 09/28/23 tablet vomiting #30 tabs Allergies Allergy/AdvReac Type Severity Reaction Status Date / Time No Known Allergies Allergy Verified 09/03/23 15:03 [facility] Medical History Iron deficiency anemia ?D50.9 - Iron deficiency anemia, unspecified (ICD-10) Adenomatous polyp ?D36.9 - Benign neoplasm, unspecified site (ICD-10) Anal fissure and fistula ?K60.2 - Anal fissure, unspecified (ICD-10) ?K60.3 - Anal fistula (ICD-10) Family History Father Cancer Sister Diabetes Social History Narrative: . Works in [employer]. Has a daughter in [place]. Two children. No regular exercise. No tobacco or recreational drug use. alcohol use is about 6 drinks per month. Smoking Status: Former smoker Do you use any of these nicotine containing products: None Second hand tobacco smoke exposure: No How often do you have a drink containing alcohol: 2-3 times a week How many standard drinks containing alcohol do you have on a typical day: 1 or 2 How often do you have six or more drinks on one occasion: Never AUDIT-C Alcohol total score: 3 Non-prescribed substance use: denies use Little interest or pleasure in doing things: not at all Feeling down, depressed, or hopeless: not at all service: No Exam Const: Vital Signs, click to edit/add: Vital Signs - 24 hr 09/28/23 10:09 Temperature 98.0 F Pulse Rate [Right Pulse Oximeter] 55 L Respiratory Rate 18 Blood Pressure [Ri ght Upper Arm] 125/77 Pulse Oximetry 96 Oxygen Delivery Me thod Room Air 62-year-old male ambulatory into the ED of his own accord. No hiccups noted during my interaction with him. Sclera clear, speaking fluently, does not have any dyspnea. Lungs sound clear, no wheezing or crackles. CV regular rate and rhythm, no murmur, normal S1 and S2, no S3 or S4. Abdomen is soft, nontender, nondistended, does not have any palpable masses. He certainly has no rebound or guarding on his abdominal examination. Documenting provider has reviewed patient's vital signs: yes Course Course ED Course: Have reviewed with patient that I will be reviewing UpToDate for current guidelines, do want to look at his recent labs and recent imaging. Radiology did tell me that they are asking that is MRI I have his abdomen which was done on September 25 be read, had not been read yet. I did review UpToDate, it is clear that this patient certainly could have other underlying etiologies for his hiccups that are not benign. I do think we should proceed with a CBC and comprehensive metabolic panel, make sure there are no changes to his electrolytes and renal function. Patient is already been on a proton pump inhibitor, he is beyond the 3-4 week stepwise initial therapy listed in up-to-date for this. Thus, as far as medicines baclofen or gabapentin would be the next level of medicines. I am going to talk to Radiology about further imaging, considering head as well as chest imaging. They are reportedly going to be reading his MRI of his abdomen from last week. Reevaluation(s) Time of Reevaluation #1: 10:55 Reevaluation #1: Have just spent 15 minutes reviewing with the patient why we wanted further testing, blood work, chest CT. He is adamant that he is just having nausea and hiccups and just wants medication. I have explained to him that there could be underlying changes causing irritation to the diaphragm. They had seen some changes on his CT an MRI of the lower lungs. The radiologist did recommend that we do a noncontrast chest CT today to see if there is actually diaphragmatic irritation happening. I have explained to the patient that despite having his recent CT, things can change. He certainly has underlying factors that point to potential malignant etiology for him in causing increased nausea and hiccups. We also recommended labs to ensure that for any reason he has not developed any kidney changes, changes to labs. Reviewed with him that we do not have recent enough labs to ensure that we have no worries here. He is adamant that he just wants medication. I have spent time discussing with him that the medicine may not help if there is an underlying cause for the hiccups. He does have a follow-up with his primary care provider this next week. If the hiccups are not resolving with the medicine prescribed, he understands that I am definitely recommending further evaluation. He should have at minimum a CBC, comprehensive metabolic panel and a noncontrast chest CT. During this conversation patient states he was here for nausea and hiccups. In my initial conversation with him I asked him multiple times if he needed medicine for nausea and vomiting, he stated that he was here for his hiccups. I have clarified with him during this time with the sales analytics manager that indeed nausea is a concern for him. During this time patient stated multiple times that if I was not going to give him a medicine then he would just leave and go home. Consultations Consultation #1: Had initially called to speak with Radiology earlier, did not get a call back. Called back again to speak with the radiologist regarding this patient and further imaging for the hiccups. We reviewed his case. As far as potential brain lesions causing the hiccups, radiologist did not feel a head CT would be adequate nor does he feel it is emergent at this time. He stated if down the road central possibility for his hiccups/nausea that an MRI of his brain could be done. For imaging today, he did recommend a chest CT noncontrast. There may be some fluid possibly irritating the diaphragm based on the recent imaging he is reviewing. Time: 10:47 Vital Signs Vital signs: Initial Vital Signs Temperature 98.0 F 09/28/23 10:09 Temperature Source Temporal Artery Scan 09/28/23 10:09 Pulse Rate 55 L 09/28/23 10:09 Respiratory Rate 18 09/28/23 10:09 Blood Pressure 125/77 09/28/23 10:09 Blood Pressure Mean 93 09/28/23 10:09 Blood Pressure Position Sitting 09/28/23 10:09 Pulse Oximetry 96 09/28/23 10:09 Oxygen Delivery Method Room Air 09/28/23 10:09 Vital Signs Temperature 98.0 F 09/28/23 10:09 Pulse Rate 55 L 09/28/23 10:09 Respiratory Rate 18 09/28/23 10:09 Blood Pressure 125/77 09/28/23 10:09 Pulse Oximetry 96 09/28/23 10:09 Oxygen Delivery Method Room Air 09/28/23 10:09 Temperature 98.0 F 09/28/23 10:09 Pulse Rate 55 L 09/28/23 10:09 Respiratory Rate 18 09/28/23 10:09 Blood Pressure 125/77 09/28/23 10:09 Pulse Oximetry 96 09/28/23 10:09 Oxygen Delivery Method Room Air 09/28/23 10:09 Discharge Plan Discharge Clinical Impression: Intractable hiccups, Nausea Patient Disposition: Home, Self-Care Condition: Stable Instructions: Hiccups (ED), Acute Nausea and Vomiting (ED) Additional Instructions: Can try Zofran per prescription for nausea control. For the hiccups, we will initiate gabapentin, 100 mg 3 times a day. I have recommended further blood work and noncontrast chest CT to rule out potential causes for your hiccups. If the medicines are not helping, Dr. Alvarado will have to do further testing. Activity Level: Activity as Tolerated Prescriptions: New gabapentin 100 mg capsule 100 mg PO TID Qty: 15 0RF ondansetron 4 mg tablet,disintegrating 4 mg PO Q6H PRN (Reason: nausea and vomiting) Qty: 30 0RF No Action acetaminophen [Tylenol Extra Strength] 500 mg tablet 500 mg PO Q6H PRN omeprazole 20 mg capsule,delayed release(DR/EC) 20 mg PO BID Qty: 240 2RF amlodipine 5 mg tablet 5 mg PO QDAY Qty: 90 0RF Follow Up/Referrals: Robe Alvarado MD [Primary Care Provider] - Stand Alone Forms: [employer] Info Instructions
== END 2023-09-28 11:26 | disposition home or self-care (01) ==
PROVIDERS: Emergency Provider Family Medicine; PCP Family Medicine
DX: R06.6 Hiccough (principal); R11.0 Nausea
CPT/HCPCS: 80053; 85025; 99283; 99284

== ENCOUNTER 2023-10-06 13:56 | Emergency (ER) | payer BC, SELFPAY ==
--- NOTE | 2023-10-06 16:44 | ED_ITS ---
HPI - General Adult General Chief complaint: Nausea/Vomiting Stated complaint: Sleeplessness 4 days-nausea Time Seen by Provider: 10/06/23 16:27 History of Present Illness HPI narrative: This 62-year-old male comes in reporting nausea and insomnia symptoms. He states that he has run out of a medicine that he was taking for nausea and reports that he has not slept well these past 4 nights. He has been diagnosed with lower esophageal cancer and is undergoing treatment and has connections with appropriate physicians in this regard. He is not stating any new symptoms and reports that he is simply here for medications to treat these 2 symptoms. He had been taking Zofran and apparently has run out of this medicine. He has not taken anything for insomnia in the past. Related Data Home Medications Medication Instructions Recorded Confirmed acetaminophen 500 mg tablet 500 mg PO Q6H PRN 08/22/22 10/01/23 (Tylenol Extra Strength) Previous Rx's Medication Instructions Recorded omeprazole 20 mg capsule,delayed 20 mg PO BID #240 caps 09/17/23 release ondansetron 4 mg disintegrating 4 mg PO Q6H PRN nausea and 09/28/23 tablet vomiting #30 tabs amlodipine 5 mg tablet 5 mg PO QDAY #90 tabs 10/01/23 gabapentin 100 mg capsule 100 mg PO TID #90 caps 10/01/23 ondansetron HCl 4 mg tablet 4 mg PO Q6H #20 tabs 10/06/23 trazodone 50 mg tablet 50 mg PO QHS #30 tabs 10/06/23 Allergies Allergy/AdvReac Type Severity Reaction Status Date / Time No Known Allergies Allergy Verified 10/01/23 13:02 Review of Systems Status of ROS: Reports: 10 or more systems reviewed and unremarkable except as noted in History and below Narrative: Constitutional: No fevers, no weight gain or loss. Eyes: No discharge. No vision changes. HENT: No congestion, no sore throat, no ear pain. Cardiovascular: No chest pain, no palpitations. Respiratory: No shortness of breath, no wheezes, no cough. Gastrointestinal: No abdominal pain, no vomiting, no diarrhea. He reports nausea symptoms. Genitourinary: No dysuria, no hematuria. Musculoskeletal: Normal range of motion. Skin: No rashes, no pruritis. Neurological: No dizziness, weakness, sensory change, speech change. Endo/Heme/Allergies: No bruising or bleeding. No polydipsia. Pysch: no suicidality, no anxiety. He has insomnia. All other systems reviewed and are negative. 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 Works in [employer]. Has a daughter in [place]. Two children. No regular exercise. No tobacco or recreational drug use. alcohol use is about 6 drinks per month. What is your current living situation?: I presently have a place to live Problems where you live: pests, such as bugs, ants, or mice Problems where you live details: ants In the past 12 months, utilities in danger of being shut off: no In past 12 months, lack of transportation kept you from medical appts, meetings, work, or getting things needed for daily living: no In the past 12 mos, have been you worried that your food would run out before you had money to buy more?: never true In the past 12 mos, the food you bought just didn't last and you didn't have money to buy more?: never true Smoking Status: Former smoker Do you use any of these nicotine containing products: None Second hand tobacco smoke exposure: No How often do you have a drink containing alcohol: 2-3 times a week How many standard drinks containing alcohol do you have on a typical day: 1 or 2 How often do you have six or more drinks on one occasion: Never AUDIT-C Alcohol total score: 3 Non-prescribed substance use: denies use How often does anyone, including family, friends and others, physically hurt you : never How often does anyone, including family, friends and others, insult or talk down to you: never How often does anyone, including family, friends and others, threaten you with harm: never How often does anyone, including family, friends and others, scream or curse at you: never Little interest or pleasure in doing things: several days Feeling down, depressed, or hopeless: several days service: No Exam Narrative: Exam Narrative: Constitutional: Well-developed, well-nourished, no acute distress. HEENT: Normocephalic, atraumatic. Neck: Normal range of motion. Nontender. Supple. Heart: Regular. No murmurs. Normal rate. Intact distal pulses. Lungs: Clear to auscultation. No chest discomfort. No wheezes, rhonchi, or rales. Abdomen: Normal bowel sounds. Nontender. No rebound tenderness. Genitalia: Deferred. Back: No midline tenderness. Normal range of motion. Extremities: Normal range of motion. No injury. Skin: Intact. No rash. Warm. No erythema or pallor. Neurologic: No altered sensation. No weakness. Alert and oriented. Psychiatric: No suicidality. No anxiety or depression. No insomnia. Nursing notes and vitals signs are reviewed. Medical Decision Making MDM Narrative Medical decision making narrative: This patient has esophageal cancer and is undergoing treatment with his physicians involved. He comes in today simply requesting medications for nausea and insomnia. He denies having any pain. He is not showing any sign of acute distress. I did discuss lab and imaging options with the patient which she declined and states that he has had these done recently and will continue plans with his regular physicians. He did received prescriptions for Zofran and trazodone. Discharge Plan Discharge Clinical Impression: Insomnia, Nausea, Adenocarcinoma of gastroesophageal junction Patient Disposition: Home, Self-Care Condition: Unchanged Additional Instructions: Take medication as needed and indicated. Follow up with MD as scheduled or return if worsening. Prescriptions: New trazodone 50 mg tablet 50 mg PO QHS Qty: 30 2RF ondansetron HCl 4 mg tablet 4 mg PO Q6H Qty: 20 2RF No Action acetaminophen [Tylenol Extra Strength] 500 mg tablet 500 mg PO Q6H PRN omeprazole 20 mg capsule,delayed release(DR/EC) 20 mg PO BID Qty: 240 2RF gabapentin 100 mg capsule 100 mg PO TID Qty: 90 0RF amlodipine 5 mg tablet 5 mg PO QDAY Qty: 90 3RF ondansetron 4 mg tablet,disintegrating 4 mg PO Q6H PRN (Reason: nausea and vomiting) Qty: 30 0RF Follow Up/Referrals: Robe Alvarado MD [Primary Care Provider] - Stand Alone Forms: MyHealth Info Instructions
[2023-10-06 16:52] VITALS: BP 119/75; PULSE 49; RESP 18; O2SAT 97
== END 2023-10-06 17:00 | disposition home or self-care (01) ==
LOC: ED 16:55
PROVIDERS: Emergency Provider Emergency Medicine Emergency Medical Services; PCP Family Medicine
DX: G47.00 Insomnia, unspecified (principal); R11.0 Nausea; C15.5 Malignant neoplasm of lower third of esophagus
CPT/HCPCS: 99283; 99284

== ENCOUNTER 2023-10-09 07:51 | Emergency (ER) | payer BC, SELFPAY ==
[2023-10-09 07:54] VITALS: BP 103/72; PULSE 53; RESP 18; TEMP 36.4; O2SAT 95
--- NOTE | 2023-10-09 08:59 | CRLHL7_ITS ---
For Patients: As a result of the Century Cures Act, medical imaging exams and procedure reports are released immediately into your electronic medical record. You may view this report before your referring provider. If you have questions, please contact your health care provider. Indication: Vomiting, hiccups, history of GE junction carcinoma Technique: Volumetric multidetector CT images of the chest, abdomen, and pelvis were obtained after the administration of intravenous contrast. 79 cc Isovue 370 low osmolar intravenous contrast Comparison: CT chest, abdomen and pelvis September 01, 2023 FINDINGS: CHEST There is right-sided Port-A-Cath in stable and satisfactory position. The thoracic aorta is nonaneurysmal. There is no filling defect to suggest pulmonary embolus. There are calcified mediastinal and hilar lymph nodes similar to previous exam. There are dense airspace consolidations within the superior aspects of the lower lobes and peripheral right upper lobe with ground-glass opacity and airspace disease similar to previous. There is no pneumothorax or new dense consolidation. No obvious pulmonary masses identified. The thoracic osseus structures are intact without fracture, lytic, or blastic lesion. The thoracic vertebral body heights are grossly maintained in satisfactory alignment without evidence of displaced fracture. ABDOMEN AND PELVIS The liver is normal in attenuation and size. The portal vein is patent. The spleen is normal in attenuation and size. The gallbladder is unremarkable without radiopaque calculus. There is no intrahepatic or common ductal dilatation. There is persistent thickening of the distal esophagus/gastric cardia with mild to moderate motion artifact at the lower chest and epigastrium. The pancreas is normal in enhancement without significant atrophy. The adrenal glands are unremarkable without evidence of adenoma. The kidneys are preserved and corticomedullary differentiation. There is no hydronephrosis or radiopaque calculus. There is a moderate diffuse amount of intracolonic stool. There is minimal distal colonic diverticulosis. No significant inflammatory changes are appreciated. The appendix is unremarkable without significant inflammatory change. The abdominal aorta is nonaneurysmal with no significant atherosclerotic disease. There is mild thickening of the bladder dome. There are fat containing inguinal canals. The anterior abdominal wall is grossly intact without significant hernias. There is no free air or free fluid. The visualized osseous structures are grossly intact without evidence of displaced fracture, lytic or blastic lesion. The lumbar vertebral body heights are grossly maintained in satisfactory alignment without evidence of displaced fracture. Impression: 1. Persistent airspace opacities within the bilateral lower lobes and inferior right upper lobe which may represent sequela of infectious and/or inflammatory change versus post radiation changes. 2. Mildly limited evaluation of the gastroesophageal junction and distal esophagus due to respiratory motion artifact. There is persistent focal thickening of the distal esophagus which may represent minimal residual changes associated with malignancy. No obvious progression or acute abnormality is identified. 3. Nonspecific mild thickening of the urinary bladder. No other acute intra-abdominal abnormalities are appreciated. Please note that all CT scans at this facility use dose modulation, iterative reconstruction, and/or weight-based dosing when appropriate to reduce radiation dose to as low as reasonably achievable. Dictated by Bin Sanches MD @ 10/09/2023 10:26:20 AM (Electronically Signed)
[2023-10-09 09:22] LABS: Appearance Urine Slightly Cloudy (Clear); Bilirubin Urine Negative (Negative); Blood Urine Trace-intact (Negative); Color Urine Yellow (Yellow); Glucose Urine Negative (Negative); Ketones Urine Negative (Negative); Leukocyte Esterase Urine Negative (Negative); Nitrite Urine Negative (Negative); Protein Urine Negative (Negative); Specific Gravity Urine 1.025 (1.000-1.030); pH Urine 6.5 (5.0-8.5)
[2023-10-09] MEDS: diphenhydrAMINE 50 MG/ML inj 12.5 MG IVP (09:35)
[2023-10-09] MEDS: PROCHLORPERAZINE 5 MG/ML VIAL 10 MG IV (09:35)
[2023-10-09] MEDS: 0.9 % SODIUM CHLORIDE 1000 ml 1,000 ML IV (09:36)
[2023-10-09 09:45] LABS: Basophils Absolute Auto 0.02 K/uL (0.00-0.30); Basophils Percent Auto 0.3 % (0.0-3.0); Eosinophils Absolute Auto 0.03 K/uL (0.00-0.50); Eosinophils Percent Auto 0.5 % (0.0-7.0); Hematocrit 43.8 % (37.0-53.0); Hemoglobin* 14.1 gm/dL (13.5-17.5); Lymphocytes Absolute Auto 1.86 K/uL (0.90-2.90); Lymphocytes Percent Auto 31.7 % (20-44); Mean Corpuscular HGB Conc 32 gm/dL (32-36); Mean Corpuscular Hemoglobin 27 pg (26-34); Mean Corpuscular Volume 84 fL (80-100); Neutrophils Absolute Auto 3.54 K/uL (1.7-7.0); Neutrophils Percent Auto 60.5 % (42.0-72.0); Platelet Count* 221 K/uL (140-440); Red Blood Count 5.23 m/uL (4.30-5.90); White Blood Count* 5.86 K/uL (4.50-11.00)
[2023-10-09 09:47] LABS: Lactate* 0.9 mmol/L (0.5-1.9)
[2023-10-09 09:50] LABS: Creatinine, Point-of-Care* 1.1 mg/dl (0.6-1.3)
[2023-10-09 09:54] LABS: Slide Review Reflex No
[2023-10-09 09:54] LABS: RBC Urine 0-2 (0-2); Squamous Epithelial Cell Urine Few (None-Few); WBC Urine 0-2 (0-5)
[2023-10-09 10:02] LABS: Albumin* 3.8 g/dL (3.3-5.0)
[2023-10-09 10:03] LABS: Chloride* 102 mmol/L (96-114); Potassium* 3.9 mmol/L (3.6-5.1); Sodium* 134 mmol/L (135-149)
[2023-10-09 10:05] LABS: Alkaline Phosphatase* 104 U/L (40-150); Anion Gap 7 mEq/L (7-15); Aspartate Amino Transferase* 19 U/L (12-35); Bilirubin Total* 0.9 mg/dL (0.1-1.5); Blood Urea Nitrogen* 12 mg/dL (7-30); Carbon Dioxide* 25 mmol/L (20-32); Estimated Glomerular Filt Rate 85 ml/min; Total Protein* 6.5 g/dL (6.0-8.3)
[2023-10-09 10:06] LABS: Alanine Aminotransferase* 14 U/L (4-50); Calcium* 8.6 mg/dL (8.4-10.6); Glucose* 108 mg/dL (60-115); Lipase* 273 U/L (23-300)
--- NOTE | 2023-10-09 10:19 | ED_ITS ---
HPI - General Adult General Date Seen: 10/09/23 Chief complaint: Nausea/Vomiting Stated complaint: vomiting past 4 days Time Seen by Provider: 10/09/23 08:13 History of Present Illness HPI narrative: This is a 62-year-old Togolese-speaking male accompanied to the ER this morning by his . History is obtained from the patient, and from his , using the Estonian-glass science engineer iPad. 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 He is here to the ER today because he has had trouble with nausea, inability to to get any food down for the past 15 days. Also hiccups for the past 15 days. Also insomnia for the past 15 days. He says he really has not slept at all for the past 5 days. He has had 2 previous ER visits for the hiccups and the insomnia, see the copied records below. During those visits sound like he only wanted medication for symptomatic relief but refused any workup to evaluate why the symptoms were present. Today his insists that he do workup to try to figure out why he is not able to eat and drink, why he has the hiccups,. Patient says that he has been having hiccups ever since the day he had his MRI. He thinks it is probably something from the MRI contrast. He is not having any trouble breathing. No cough. No fever. No chest pain. He is not having any abdominal pain. He is just nauseous and throws up whenever he tries to eat. It sounds like really when he tries to eat food does not even get all the way through his esophagus into his stomach. He says he has not been able to eat any food in 15 days. He knows that he has lost weight but he does not track his weight on a scale so does not know how much weight he has lost. He has not had a fever or chills. He has not had any bowel movement in 5 days, but attributes that to not eating. Prior to 5 days ago bowel movements were normal. He says urination has been normal. It sounds like he has been able to drink and stay hydrated. No dysuria, urgency, frequency, hematuria, cloudy urin e. No abdominal pain or back pain. He says he was given prescription for the hiccups but they did not help. He is not sure what they were. Recent visits- Oncology visit 09/03/23 Mr. 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 He completed 1 year of nivolumab in January 2023 after also completing chemotherapy as well as chemoradiation. -ECOG 0 -imaging reviewed 08/2023 -return visit in 3 months with CBC CMP CT chest abdomen pelvis -continues to have port in place # elevated alkaline phosphatase -will repeat alkaline phosphatase in 2 weeks # port flushes -we will space out port flushes from 4-6 weeks # work absence/work leave letter -written a letter for absence from work # acid reflux/dysphagia -discuss that he can increase omeprazole from 20 mg once daily to twice daily. -if over the next 2 weeks acid reflux is not improved, will consider getting EGD. #GERD -currently on omeprazole for GERD as needed #Anemia MRI abd 09/25/23 FINDINGS : Liver: Non cirrhotic morphology with no masses or lesions. Biliary tree: Normal caliber and unremarkable gallbladder. Pancreas adrenal glands spleen, kidneys: Unremarkable Lymph nodes: No suspicious enlargement. No adenopathy in the gastrohepatic ligament. Miscellaneous: Large amount of increased signal intensity in the lung bases corresponding to areas of dense alveolar airspace disease on the CT scan. Ascites: Absent. IMPRESSION : 1. No signs of metastatic lesion in the liver or upper abdomen. 2. No adenopathy. 3. Dense bibasilar alveolar airspace disease which persists since the most recent CT scan. 09/28/23 ER visit 62-year-old male coming in telling me he has hiccups. He told other staff on intake that he was having nausea and some vomiting. He tells me it is the hiccups that are bringing him in. He believes that the contrast that he received on September 25 for his abdominal MRI induced hiccups. He states he is having difficulty sleeping because of the hiccups. He is not having any increased pain, no chest pain, no cough, no shortness of breath. He has had no fevers. Brief review of his records initially shows that he has metastatic gastroesophageal adenocarcinoma that seems to be stable. He did just have an MRI of his abdomen on 09/25/2023 which is not been read yet. Patient is already on omeprazole. [facility] ED Course: Have reviewed with patient that I will be reviewing UpToDate for current guidelines, do want to look at his recent labs and recent imaging. Radiology did tell me that they are asking that is MRI I have his abdomen which was done on September 25 be read, had not been read yet. I did review UpToDate, it is clear that this patient certainly could have other underlying etiologies for his hiccups that are not benign. I do think we should proceed with a CBC and comprehensive metabolic panel, make sure there are no changes to his electrolytes and renal function. Patient is already been on a proton pump inhibitor, he is beyond the 3-4 week stepwise initial therapy listed in up-to-date for this. Thus, as far as medicines baclofen or gabapentin would be the next level of medicines. I am going to talk to Radiology about further imaging, considering head as well as chest imaging. They are reportedly going to be reading his MRI of his abdomen from last week. Reevaluation #1: Have just spent 15 minutes reviewing with the patient why we wanted further testing, blood work, chest CT. He is adamant that he is just having nausea and hiccups and just wants medication. I have explained to him that there could be underlying changes causing irritation to the diaphragm. They had seen some changes on his CT an MRI of the lower lungs. The radiologist did recommend that we do a noncontrast chest CT today to see if there is actually diaphragmatic irritation happening. I have explained to the patient that despite having his recent CT, things can change. He certainly has underlying factors that point to potential malignant etiology for him in causing increased nausea and hiccups. We also recommended labs to ensure that for any reason he has not developed any kidney changes, changes to labs. Reviewed with him that we do not have recent enough labs to ensure that we have no worries here. He is adamant that he just wants medication. I have spent time discussing with him that the medicine may not help if there is an underlying cause for the hiccups. He does have a follow-up with his primary care provider this next week. If the hiccups are not resolving with the medicine prescribed, he understands that I am definitely recommending further evaluation. He should have at minimum a CBC, comprehensive metabolic panel and a noncontrast chest CT. During this conversation patient states he was here for nausea and hiccups. In my initial conversation with him I asked him multiple times if he needed medicine for nausea and vomiting, he stated that he was here for his hiccups. I have clarified with him during this time with the professor of practice that indeed nausea is a concern for him. During this time patient stated multiple times that if I was not going to give him a medicine then he would just leave and go home. Consultation #1: Had initially called to speak with Radiology earlier, did not get a call back. Called back again to speak with the radiologist regarding this patient and further imaging for the hiccups. We reviewed his case. As far as potential brain lesions causing the hiccups, radiologist did not feel a head CT would be adequate nor does he feel it is emergent at this time. He stated if down the road central possibility for his hiccups/nausea that an MRI of his brain could be done. For imaging today, he did recommend a chest CT noncontrast. There may be some fluid possibly irritating the diaphragm based on the recent imaging he is reviewing. Additional Instructions: Can try Zofran per prescription for nausea control. For the hiccups, we will initiate gabapentin, 100 mg 3 times a day. I have recommended further blood work and noncontrast chest CT to rule out potential causes for your hiccups. If the medicines are not helping, Dr. Alvarado will have to do further testing. Prescriptions: gabapentin 100 mg capsule 100 mg PO TID Qty: 15 0RF ondansetron 4 mg tablet,disintegrating 4 mg PO Q6H PRN (Reason: nausea and vomiting) Qty: 30 0RF 10/01/23 PCP Visit Patient is a 62 year old male here for his annual exam. First visit with me was 05/16/2022 to establish care. Togolese-speaking. Seen with professor of practice today. Over the last year he has had treatments for esophageal cancer including chemotherapy and radiation therapy but no surgery. He reports a good prognosis going forward. He has to be careful fast and what type of food he eats but generally he can swallow fairly normally despite the therapies. Most recent issue has been intractable hiccups lasting for the last 6 days. He was it in the emergency department and given gabapentin 100 mg p.o. t.i.d.. That did not help after few doses so he called his oncologist the next day and was given baclofen over the phone. That helped immediately but made him very tired. He wants to know what else he can do. He wonders if contrast from recent MRI contributed to his hiccups. Not reporting respiratory infection. ROS: Fatigue, weight change. Some nausea and vomiting with hiccups. Weak urinary stream. Dizziness from baclofen. Remainder of 14 point comprehensive review of systems is normal. ASSESSMENT/PLAN: 1. Healthcare maintenance. Tdap given today. Consider Shingrix vaccine. Two doses of COVID vaccine. Recent booster done. Flu vaccine done. Not quite ready for colorectal cancer screening with everything else going on in his life. He will let me know and we can place an order when he is ready. Careful diet and daily exercise encouraged. Annual exam is encouraged. Will need to get him on schedule for annual exams. 2. Esophageal cancer. Doing well. Plan per Oncology. 3. Hypertension. Reasonably controlled. Continue current amlodipine. 4. Left facial numbness. Resolved. 5. Gastroesophageal reflux disease. Continue omeprazole. 6. Iron deficiency anemia. On Supplemental iron. 7. Intractable hiccups. Encouraged him to give the gabapentin more than 1 day. Reasonable after 3 or 4 days to go up to 200 mg p.o. t.i.d. and follow-up in 1-2 weeks if no better. Okay to stop the baclofen since that is causing dizziness. Also discussed Valsalva maneuver and associated practical approaches to dealing with hiccups per up-to-date recommendations 10/06/23 ER Visit This patient has esophageal cancer and is undergoing treatment with his physicians involved. He comes in today simply requesting medications for nausea and insomnia. He denies having any pain. He is not showing any sign of acute distress. I did discuss lab and imaging options with the patient which she declined and states that he has had these done recently and will continue plans with his regular physicians. He did received prescriptions for Zofran and trazodone Related Data Home Medications Medication Instructions Recorded Confirmed acetaminophen 500 mg tablet 500 mg PO Q6H PRN 08/22/22 10/01/23 (Tylenol Extra Strength) Previous Rx's Medication Instructions Recorded omeprazole 20 mg capsule,delayed 20 mg PO BID #240 caps 09/17/23 release ondansetron 4 mg disintegrating 4 mg PO Q6H PRN nausea and 09/28/23 tablet vomiting #30 tabs amlodipine 5 mg tablet 5 mg PO QDAY #90 tabs 10/01/23 gabapentin 100 mg capsule 100 mg PO TID #90 caps 10/01/23 ondansetron HCl 4 mg tablet 4 mg PO Q6H #20 tabs 10/06/23 trazodone 50 mg tablet 50 mg PO QHS #30 tabs 10/06/23 diphenhydramine HCl 25 mg capsule 25 mg PO TID PRN nausea and 10/09/23 (Benadryl) vomiting #14 caps prochlorperazine maleate 10 mg 10 mg PO TID PRN nausea and 10/09/23 tablet (Compazine) vomiting #20 tabs Allergies Allergy/AdvReac Type Severity Reaction Status Date / Time No Known Allergies Allergy Verified 10/01/23 13:02 [facility] Medical History Iron deficiency anemia ?D50.9 - Iron deficiency anemia, unspecified (ICD-10) Adenomatous polyp ?D36.9 - Benign neoplasm, unspecified site (ICD-10) 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 Works in [employer]. Has a daughter in [place]. Two children. No regular exercise. No tobacco or recreational drug use. alcohol use is about 6 drinks per month. What is your current living situation?: I presently have a place to live Problems where you live: pests, such as bugs, ants, or mice Problems where you live details: ants In the past 12 months, utilities in danger of being shut off: no In past 12 months, lack of transportation kept you from medical appts, meetings, work, or getting things needed for daily living: no In the past 12 mos, have been you worried that your food would run out before you had money to buy more?: never true In the past 12 mos, the food you bought just didn't last and you didn't have money to buy more?: never true Smoking Status: Former smoker Do you use any of these nicotine containing products: None Second hand tobacco smoke exposure: No How often do you have a drink containing alcohol: 2-3 times a week How many standard drinks containing alcohol do you have on a typical day: 1 or 2 How often do you have six or more drinks on one occasion: Never AUDIT-C Alcohol total score: 3 Non-prescribed substance use: denies use How often does anyone, including family, friends and others, physically hurt you : never How often does anyone, including family, friends and others, insult or talk down to you: never How often does anyone, including family, friends and others, threaten you with harm: never How often does anyone, including family, friends and others, scream or curse at you: never Little interest or pleasure in doing things: several days Feeling down, depressed, or hopeless: several days service: No Exam Narrative: Exam Narrative: Constitutional: Appears well-developed and well-nourished. Alert. Conversant through glass science engineer Non toxic. He does have a cup throughout the exam. HENT: Head: Atraumatic. Nose: Nose normal. Mouth/Throat: Oral mucosa is clear but dry, not desiccated a cracked. no trismus. Pharynx normal. Tonsils symmetric. No tonsillar enlargement, erythema, or exudate. Eyes: Conjunctivae normal. EOM normal. Pupils equal, round, and reactive to light. No scleral icterus. Neck: Normal range of motion. Neck supple. No tracheal deviation present. Cardiovascular: Normal rate, regular rhythm. No gallop. No friction rub. No murmur heard. Pulmonary/Chest: Effort normal. No stridor. No respiratory distress. No wheezes. No rales. No rhonchi . No tenderness. Abdominal: Soft. Bowel sounds normal. No distension. No mass. No tenderness. No rebound. No guarding. Musculoskeletal: RUE: Normal range of motion. No tenderness. No deformity LUE: Normal range of motion. No tenderness. No deformity RLE: Normal range of motion. No edema. No tenderness. No deformity LLE: Normal range of motion. No edema. No tenderness. No deformity Lymph: No cervical adenopathy. Neurological: Alert and oriented to person, place, and time. Normal strength. CN II-VII intact. No sensory deficit. GCS eye subscore is 4. GCS verbal subscore is 5. GCS motor subscore is 6. Normal coordination Skin: Skin is warm and dry. No rash noted. No pallor. Normal capillary refill. Psychiatric: Normal mood. Normal affect. Const: Vital Signs, click to edit/add: Vital Signs - 24 hr 10/09/23 07:54 10/09/23 13:00 10/09/23 13:33 Temperature 97.6 F 97.6 F Pulse Rate 60 Pulse Rate [Right Femoral] 53 L 53 L Respiratory Rate 18 14 14 Blood Pressure 119/74 Blood Pressure [Ri ght Upper Arm] 103/72 103/72 Pulse Oximetry 95 98 Oxygen Delivery Me thod Room Air Course Vital Signs Vital signs: Initial Vital Signs Temperature 97.6 F 10/09/23 07:54 Temperature Source Temporal Artery Scan 10/09/23 07:54 Pulse Rate 53 L 10/09/23 07:54 Respiratory Rate 18 10/09/23 07:54 Blood Pressure 103/72 10/09/23 07:54 Blood Pressure Mean 82 10/09/23 07:54 Blood Pressure Position Sitting 10/09/23 07:54 Pulse Oximetry 95 10/09/23 07:54 Oxygen Delivery Method Room Air 10/09/23 07:54 Vital Signs Temperature 97.6 F 10/09/23 07:54 Pulse Rate 53 L 10/09/23 07:54 Respiratory Rate 18 10/09/23 07:54 Blood Pressure 103/72 10/09/23 07:54 Pulse Oximetry 95 10/09/23 07:54 Oxygen Delivery Method Room Air 10/09/23 07:54 Temperature 97.6 F 10/09/23 13:33 Pulse Rate 53 L 10/09/23 13:33 Respiratory Rate 14 10/09/23 13:33 Blood Pressure 103/72 10/09/23 13:33 Pulse Oximetry 98 10/09/23 13:00 Oxygen Delivery Method Room Air 10/09/23 07:54 Medications Administered Medications: Discontinued Medications Generic Name Dose Route Start Last Admin Trade Name Freq PRN Reason Stop Dose Admin Diphenhydramine HCl 12.5 mg 10/09/23 08:59 10/09/23 09:35 Diphenhydramine 50 Mg/Ml Inj IVP 10/09/23 09:00 12.5 mg ONCE ONE Administration Heparin Sodium (Porcine) 500 unit 10/09/23 09:56 10/09/23 13:25 Heparin 500 Unit/5 Ml Syringe IVF 10/09/23 09:57 500 unit ONCE ONE Administration Sodium Chloride 1,000 mls @ 1,000 mls/hr 10/09/23 09:00 10/09/23 10:40 0.9 % Sodium Chloride 1000 Ml IV 10/09/23 09:59 Infused .Q1H ROSI Infusion Lorazepam 1 mg 10/09/23 11:51 10/09/23 11:55 Lorazepam 2 Mg/Ml Inj IVP 10/09/23 11:52 1 mg ONCE ONE Administration Prochlorperazine 10 mg 10/09/23 08:59 10/09/23 09:35 Prochlorperazine 5 Mg/Ml Vial IV 10/09/23 09:00 10 mg ONCE ONE Administration Medical Decision Making MDM Narrative Medical decision making narrative: 62-year-old gentleman with a 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 Also pickups. Also insomnia. 1. Neuro: Patient is alert and oriented. Speaking fluently. No focal deficits to suggest stroke. Blood sugar is 108. No known history brain Mets. His cups were substantially improved (but not completely resolved) after Compazine. Addition of Ativan had no clear further improvement will try a trial of Compazine at home. 2. Renal/electrolyte: Despite vomiting for for 15 days and reported inability take anything by mouth, BUN 12, creatinine 1.0. He has mild hyponatremia with a sodium 134. Potassium normal at 3.9. Chloride and bicarb are normal. 3. Cardiac: EKG shows sinus bradycardia. No definite ischemia. QTC normal. 4. Hepatic: LFTs normal. Lipase normal. 5.ID: No symptoms of recent respiratory infection. Oxygen normal. Urinalysis negative for infection. Chest CT shows either atelectasis or chronic changes of previous radiation the patient's lung. No symptoms of any active pulmonary infection 6. Heme/Oncology: Has history of iron deficiency anemia. Today hemoglobin 14.1 is up from 12.8 on 09/01, possibly due to hemoconcentration. WBC normal. Platelet count normal. CT scan shows persistent thickening of his distal esophagus, possibly due to residual cancel but no obvious progression of disease or new tumor. Suspect that the thickened esophagus may be rubbing against his diaphragm, which might be explaining his hiccups 7. Pulm: CT scan shows nonspecific lower lobe lung findings which could be sequela of previous infection or radiation. No definite new change. Eight. Gi. He has had a lot of nausea and vomiting for the past several days. Nausea and vomiting were resolved after treatment Compazine here in the ER. He passed oral challenge with liquids and solids and feels well. At this point no clear evidence for any distal esophageal obstruction requiring hospitalization or emergent endoscopy. We discussed the findings with the patient, his , and his daughter through the glass science engineer. Discussed plan of care and plan for a trial of therapy with Compazine and Benadryl. They verbalized their agreement. They are pleased with how much better he is feeling now compared to prior to arrival. Lab Data Labs: Lab Results 10/09/23 10/09/23 Range/Units 09:18 09:35 WBC 5.86 (4.50-11.00) K/uL RBC 5.23 (4.30-5.90) m/uL Hgb 14.1 (13.5-17.5) gm/dL Hct 43.8 (37.0-53.0) % MCV 84 (80-100) fL MCH 27 (26-34) pg MCHC 32 (32-36) gm/dL RDW Coeff of Raj 14.0 (11.5-15.5) % Plt Count 221 (140-440) K/uL Neut % (Auto) 60.5 (42.0-72.0) % Lymph % (Auto) 31.7 (20-44) % Ashley % (Auto) 7.0 (0.0-11.0) % Eos % (Auto) 0.5 (0.0-7.0) % Baso % (Auto) 0.3 (0.0-3.0) % Neut # (Auto) 3.54 (1.7-7.0) K/uL Lymph # (Auto) 1.86 (0.90-2.90) K/uL Ashley # (Auto) 0.40 (0.00-0.90) K/UL Eos # (Auto) 0.03 (0.00-0.50) K/uL Baso # (Auto) 0.02 (0.00-0.30) K/uL Abs Immat Gran (auto) 0.00 (0.00-0.30) K/uL Imm/Tot Granulo (auto) 0.0 % Sodium 134 L (135-149) mmol/L Potassium 3.9 (3.6-5.1) mmol/L Chloride 102 (96-114) mmol/L Carbon Dioxide 25 (20-32) mmol/L Anion Gap 7 (7-15) mEq/L BUN 12 (7-30) mg/dL Creatinine 1.0 (0.5-1.5) mg/dL Estimated GFR 85 ml/min Glucose 108 (60-115) mg/dL Lactate 0.9 (0.5-1.9) mmol/L Calcium 8.6 (8.4-10.6) mg/dL Total Bilirubin 0.9 (0.1-1.5) mg/dL AST 19 (12-35) U/L ALT 14 (4-50) U/L Alkaline Phosphatase 104 (40-150) U/L Total Protein 6.5 (6.0-8.3) g/dL Albumin 3.8 (3.3-5.0) g/dL Lipase 273 (23-300) U/L Urine Color Yellow (Yellow) Urine Appearance Slightly Cloudy A (Clear) Urine pH 6.5 (5.0-8.5) Ur Specific [place] 1.025 (1.000-1.030) Urine Protein Negative (Negative) Urine Glucose (UA) Negative (Negative) Urine Ketones Negative (Negative) Urine Blood Trace-intact A (Negative) Urine Nitrite Negative (Negative) Urine Bilirubin Negative (Negative) Urine Urobilinogen 1.0 (0.2-1.0) Ur Leukocyte Esterase Negative (Negative) Urine RBC 0-2 (0-2) Urine WBC 0-2 (0-5) Ur Squamous Epith Cells Few (None-Few) Urine Bacteria None (None) POC Creatinine 1.1 (0.6-1.3) mg/dl Imaging Data CT chest/abdomen/pelvis: Attestation: I have reviewed the pertinent imaging results. Radiologist's impression: Impression: 1. Persistent airspace opacities within the bilateral lower lobes and inferior right upper lobe which may represent sequela of infectious and/or inflammatory change versus post radiation changes. 2. Mildly limited evaluation of the gastroesophageal junction and distal esophagus due to respiratory motion artifact. There is persistent focal thickening of the distal esophagus which may represent minimal residual changes associated with malignancy. No obvious progression or acute abnormality is identified. 3. Nonspecific mild thickening of the urinary bladder. No other acute intra-abdominal abnormalities are appreciated. ECG Data Attestation: I personally reviewed and interpreted this ECG as follows: Interpretation: Sinus bradycardia. Rate 53 [place] 134 QRS axis normal axis. No pathologic Q-waves. ST segment/T wave: Nonspecific T-wave flattening. No ST segment elevation or depression. QTc: 442 Discharge Plan Discharge Clinical Impression: Nausea, Adenocarcinoma of gastroesophageal junction, Intractable hiccups Patient Disposition: Home, Self-Care Condition: Stable Instructions: Hiccups (ED), Acute Nausea and Vomiting (ED) Additional Instructions: Please return to the ER right away if you have any worsening symptoms or uncontrolled nausea and vomiting, uncontrolled hiccups, or if you have any problems. Please call your doctor tomorrow to arrange an ER follow-up visit within the next 2-5 days. Your doctor can help you adjust your medications to be sure that your hiccups and nausea completely go away. Por favor llama a [place] doctor regular manana para arreglar mp leticia de seguimiento para 2-5 frost. [facility] medico puede ayudar a cambiar el dosis de thierno medicamentos para quitar el hipo y nausea. Regrese a la nicole de emergencia si thierno simptomas empeoran incontrolable, nausea y vomito, hipo incontrolable o otras problemas emergentes nuevas. Prescriptions: New prochlorperazine maleate [Compazine] 10 mg tablet 10 mg PO TID PRN (Reason: nausea and vomiting) Qty: 20 0RF diphenhydramine HCl [Benadryl] 25 mg capsule 25 mg PO TID PRN (Reason: nausea and vomiting) Qty: 14 0RF No Action acetaminophen [Tylenol Extra Strength] 500 mg tablet 500 mg PO Q6H PRN omeprazole 20 mg capsule,delayed release(DR/EC) 20 mg PO BID Qty: 240 2RF gabapentin 100 mg capsule 100 mg PO TID Qty: 90 0RF amlodipine 5 mg tablet 5 mg PO QDAY Qty: 90 3RF ondansetron 4 mg tablet,disintegrating 4 mg PO Q6H PRN (Reason: nausea and vomiting) Qty: 30 0RF trazodone 50 mg tablet 50 mg PO QHS Qty: 30 2RF ondansetron HCl 4 mg tablet 4 mg PO Q6H Qty: 20 2RF Follow Up/Referrals: Robe Alvarado MD [Primary Care Provider] - Stand Alone Forms: [facility] Info Instructions
[2023-10-09] MEDS: LORazepam 2 MG/ML inj 1 MG IVP (11:55)
[2023-10-09 13:00] VITALS: BP 119/74; PULSE 60; RESP 14; O2SAT 98
[2023-10-09] MEDS: HEPARIN 500 UNIT/5 ML SYRINGE IVF (13:25)
--- NOTE | 2023-10-09 13:32 | ED.NURSE ---
Port hep-locked before deaccessing. Pt tolerated well. Bandage in place over port site.
[2023-10-09 13:33] VITALS: BP 103/72; PULSE 53; RESP 14; TEMP 36.4
== END 2023-10-09 13:34 | disposition home or self-care (01) ==
PROVIDERS: Emergency Provider Emergency Medicine; PCP Family Medicine
DX: R11.0 Nausea (principal); R06.6 Hiccough; C15.5 Malignant neoplasm of lower third of esophagus
CPT/HCPCS: 36415; 71260; 74177; 80053; 81001; 82565; 83605; 83690; 85025; 93005; 96374; 96375; 99284; 99285; J0780; J1200; J1642; J2060; J7030; Q9967

== ENCOUNTER 2023-10-18 17:21 | Emergency (ER) | payer BC, SELFPAY ==
[2023-10-18 17:39] VITALS: BP 116/76; PULSE 61; RESP 18; TEMP 37; O2SAT 97
--- NOTE | 2023-10-18 18:14 | ED.ABDPAIN ---
HPI - Abdominal Pain General Chief Complaint: Abdominal Pain Stated Complaint: stomach pain Time Seen by Provider: 10/18/23 17:22 History of Present Illness HPI narrative: This 62-year-old male comes in reporting abdominal pain. He is also had some diarrhea. He does have a diagnosis of esophageal cancer. He went to his primary physician 3 or 4 days ago and moves reporting some constipation at that time. He has taken some MiraLax and now has diarrhea. He is reporting some abdominal pain and states that he is not taking any medicine for pain. He does have nausea symptoms and is taking medicine that is sufficient to treat his nausea. He arrives here with normal vital signs. Related Data Previous Rx's Medication Instructions Recorded omeprazole 20 mg capsule,delayed 20 mg PO BID #240 caps 09/17/23 release ondansetron 4 mg disintegrating 4 mg PO Q6H PRN nausea and 09/28/23 tablet vomiting #30 tabs amlodipine 5 mg tablet 5 mg PO QDAY #90 tabs 10/01/23 ondansetron HCl 4 mg tablet 4 mg PO Q6H #20 tabs 10/06/23 trazodone 50 mg tablet 50 mg PO QHS #30 tabs 10/06/23 gabapentin 100 mg capsule 100 mg PO TID #90 caps 10/15/23 prochlorperazine maleate 10 mg 10 mg PO TID PRN nausea and 10/15/23 tablet (Compazine) vomiting #20 tabs hydrocodone 5 mg-acetaminophen 325 1 tab PO Q4-6H PRN pain #12 tabs 10/18/23 mg tablet Allergies Allergy/AdvReac Type Severity Reaction Status Date / Time No Known Allergies Allergy Verified 10/15/23 14:55 Review of Systems Status of ROS Reports: 10 or more systems reviewed and unremarkable except as noted in History and below Narrative Constitutional: No fevers, no weight gain or loss. Eyes: No discharge. No vision changes. HENT: No congestion, no sore throat, no ear pain. Cardiovascular: No chest pain, no palpitations. Respiratory: No shortness of breath, no wheezes, no cough. Gastrointestinal: Diffuse abdominal pain. No vomiting. He has diarrhea. Genitourinary: No dysuria, no hematuria. Musculoskeletal: Normal range of motion. Skin: No rashes, no pruritis. Neurological: No dizziness, weakness, sensory change, speech change. Endo/Heme/Allergies: No bruising or bleeding. No polydipsia. Pysch: no suicidality, no anxiety, no insomnia. All other systems reviewed and are negative. 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 Works in [employer]. Has a daughter in [place]. Two children. No regular exercise. No tobacco or recreational drug use. alcohol use is about 6 drinks per month. What is your current living situation?: I presently have a place to live Problems where you live: pests, such as bugs, ants, or mice Problems where you live details: ants In the past 12 months, utilities in danger of being shut off: no In past 12 months, lack of transportation kept you from medical appts, meetings, work, or getting things needed for daily living: no In the past 12 mos, have been you worried that your food would run out before you had money to buy more?: never true In the past 12 mos, the food you bought just didn't last and you didn't have money to buy more?: never true Smoking Status: Former smoker Do you use any of these nicotine containing products: None Second hand tobacco smoke exposure: No How often do you have a drink containing alcohol: 2-3 times a week How many standard drinks containing alcohol do you have on a typical day: 1 or 2 How often do you have six or more drinks on one occasion: Never AUDIT-C Alcohol total score: 3 Non-prescribed substance use: denies use How often does anyone, including family, friends and others, physically hurt you: never How often does anyone, including family, friends and others, insult or talk down to you: never How often does anyone, including family, friends and others, threaten you with harm: never How often does anyone, including family, friends and others, scream or curse at you: never Little interest or pleasure in doing things: several days Feeling down, depressed, or hopeless: several days service: No Exam Narrative: Exam Narrative: Constitutional: Well-developed, well-nourished, no acute distress. HEENT: Normocephalic, atraumatic. Neck: Normal range of motion. Nontender. Supple. Heart: Regular. No murmurs. Normal rate. Intact distal pulses. Lungs: Clear to auscultation. No chest discomfort. No wheezes, rhonchi, or rales. Abdomen: Normal bowel sounds. Mild tenderness in the mid abdomen. No rebound tenderness. Genitalia: Deferred. Back: No midline tenderness. Normal range of motion. Extremities: Normal range of motion. No injury. Skin: Intact. No rash. Warm. No erythema or pallor. Neurologic: No altered sensation. No weakness. Alert and oriented. Psychiatric: No suicidality. No anxiety or depression. No insomnia. Nursing notes and vitals signs are reviewed. Const: Vital Signs, click to edit/add: Vital Signs - 24 hr 10/18/23 17:39 Temperature 98.6 F Pulse Rate [Right Pulse Oximeter] 61 Respiratory Rate 18 Blood Pressure [Ri ght Upper Arm] 116/76 Pulse Oximetry 97 Oxygen Delivery Me thod Room Air Course Vital Signs Vital signs: Initial Vital Signs Temperature 98.6 F 10/18/23 17:39 Temperature Source Temporal Artery Scan 10/18/23 17:39 Pulse Rate 61 10/18/23 17:39 Respiratory Rate 18 10/18/23 17:39 Blood Pressure 116/76 10/18/23 17:39 Blood Pressure Mean 89 10/18/23 17:39 Blood Pressure Position Sitting 10/18/23 17:39 Pulse Oximetry 97 10/18/23 17:39 Oxygen Delivery Method Room Air 10/18/23 17:39 Vital Signs Temperature 98.6 F 10/18/23 17:39 Pulse Rate 61 10/18/23 17:39 Respiratory Rate 18 10/18/23 17:39 Blood Pressure 116/76 10/18/23 17:39 Pulse Oximetry 97 10/18/23 17:39 Oxygen Delivery Method Room Air 10/18/23 17:39 Temperature 98.6 F 10/18/23 17:39 Pulse Rate 61 10/18/23 17:39 Respiratory Rate 18 10/18/23 17:39 Blood Pressure 116/76 10/18/23 17:39 Pulse Oximetry 97 10/18/23 17:39 Oxygen Delivery Method Room Air 10/18/23 17:39 MDM - Abdominal Pain MDM Narrative Medical decision making narrative: This patient has esophageal cancer who comes in with abdominal pain and diarrhea. His diarrhea may be secondary to using MiraLax recently. He arrives with normal vital signs and his exam is reassuring. I did discuss lab and imaging options which were declined in a process of shared decision making. He does have connection with his regular physicians with regard to these diagnoses. He is not taking any medicines for pain. I did provide prescription for some tablets of [place] as this may give good pain relief and counteract some of the diarrhea. I recommended using Imodium as needed and directed. Discharge Plan Discharge Clinical Impression: Abdominal pain, Adenocarcinoma of gastroesophageal junction Patient Disposition: Home, Self-Care Condition: Stable Additional Instructions: Take medication as needed and indicated. Use Imodium as directed for diarrhea. Use MiraLax as directed for constipation. Follow-up with primary physicians or return if worsening. Prescriptions: New hydrocodone-acetaminophen 5-325 mg tablet 1 tab PO Q4-6H PRN (Reason: pain) Qty: 12 0RF No Action omeprazole 20 mg capsule,delayed release(DR/EC) 20 mg PO BID Qty: 240 2RF amlodipine 5 mg tablet 5 mg PO QDAY Qty: 90 3RF prochlorperazine maleate [Compazine] 10 mg tablet 10 mg PO TID PRN (Reason: nausea and vomiting) Qty: 20 0RF gabapentin 100 mg capsule 100 mg PO TID Qty: 90 2RF ondansetron 4 mg tablet,disintegrating 4 mg PO Q6H PRN (Reason: nausea and vomiting) Qty: 30 0RF trazodone 50 mg tablet 50 mg PO QHS Qty: 30 2RF ondansetron HCl 4 mg tablet 4 mg PO Q6H Qty: 20 2RF Follow Up/Referrals: Robe Alvarado MD [Primary Care Provider] - Stand Alone Forms: [facility] Info Instructions
== END 2023-10-18 18:57 | disposition home or self-care (01) ==
LOC: ED 18:44
PROVIDERS: Emergency Provider Emergency Medicine Emergency Medical Services; PCP Family Medicine
DX: R10.9 Unspecified abdominal pain (principal); C16.0 Malignant neoplasm of cardia
CPT/HCPCS: 99283; 99284

== ENCOUNTER 2023-12-04 14:54 | Outpatient (CLI) | payer BC, OTHER, SELFPAY ==
--- OUTSIDE RECORDS SUMMARY | 2023-12-04 15:07 | XMS_ITS | Clinical Summary ---
Author Name Unknown Organization [facility] Address [place], [place] [address] Care Team Providers Care Property Maintenance Supervisor Name Role Phone Votel, Johan Vinson MD Primary Care Provider + Allergies No known active allergies Medications Medication Sig Dispensed Refills Start Date End Date Status meclizine (ANTIVERT) 12.5 mg tabletIndications:Dizz iness Take 1 tablet by mouth 3 times daily if needed. 10 tablet 0 10/18/2019 Active lisinopriL (PRINIVIL; ZESTRIL) 20 mg tablet Take 20 mg by mouth once daily. 0 12/27/2021 Active omeprazole (PriLOSEC) 20 mg Delayed-Release capsuleIndications:Gas troesophageal reflux disease without esophagitis Take 1 Capsule (20 mg) by mouth once daily before a meal. 90 capsule. 3 03/18/2022 Active ferrous sulfate, 65 mg elemental, (Iron) tabletIndications:Esop hageal adenocarcinoma (HC) Take 1 Tablet (325 mg) by mouth once daily. 90 Tablet 3 03/18/2022 Active Active Problems Problem Noted Date Diagnosed Date Esophageal adenocarcinoma 03/18/2022 Insomnia 03/10/2017 Severe recurrent depression with psychosis 06/21 Adenomatous colon polyp 02/08/2013 Overview: Colonoscopy 01/2013 polyp repeat in 5 years Other and unspecified hyperlipidemia 12/22/2012 Unspecified psychosis 07/08/2012 Immunizations Name Administration Dates Next Due COVID-19 vaccine (Moderna 100mcg/0.5mL) LILLI PACHECO 03/02/2021 Influenza Virus, Unspecified 11/13/2011 Influenza, IIV3 (Age >=3 years) 08/26/20 13,08/12/2012,10/29/2010,2009 Influenza, IIV4 12/02/2014 Tdap 08/12/2012 Family History Medical History Relation Name Comments Good Health Brother 3 Good Health Brother 4 Good Health Daughter 3 Good Health Daughter 4 Good Health Sister 4 Good Health Sister 5 Good Health Sister 6 Other Sister 7 Anxiety after h usband left, hospitalized and on medication Relation Name Status Comments Brother 1 Alive Brother 2 Alive Brother 3 Brother 4 Daughter 1 Alive Daughter 2 Alive Daughter 3 Daughter 4 Father Mother Sister 1 Alive Sister 2 Alive Sister 3 Alive Sister 4 Sister 5 Sister 6 Sister 7 Social History Tobacco Use Types Packs/Day Years Used Date Smoking Tobacco: Former Cigarettes Smokeless Tobacco: Never Tobacco Cessation:Counseling Given: Yes Alcohol Use Standard Drinks/Week Comments No 0 (1 standard drink = 0.6 oz pur e alcohol) PHQ-2 Answer Date Recorded PHQ-2 Score 0 10/18/2019 Sex and Gender Information Value Date Recorded Sex Assigned at Not on file Gender Identity Not on file Sexual Orientation Not on file Obstetrics History Last Filed Vital Signs Vital Sign Reading Time Taken Comments Blood Pressure 134/78 03/18/2022 2:53 PM CDT Pulse 57 03/18/2022 2:53 PM CDT Temperature 36.9 ??C (98.5 ??F) 03/18/2022 2:53 PM CD T Respiratory Rate 18 02/23/2017 7:20 PM CDT Oxygen Saturation 97% 03/18/2022 2:53 PM CDT Inhaled Oxygen Concentration - - Weight 85 kg (187 lb 4.8 oz) 03/18/2022 2:53 PM CDT Height 160 cm (5' 3) 03/18/2022 2:53 PM CDT Body Mass Index 33.18 03/18/2022 2:53 PM CDT Plan of Treatment Health Maintenance Due Date Last Done Comments Hepatitis C screening for age 18-79 1977 Zoster (shingles) series for age 50+ (1 of 2) 2009 Colonoscopy through age 75 02/05/2018 02/05/2013 Lipids for age 45-75 08/26/2018 08/26/2013, 01/06/2013, 07/17/2012 Depression screening for age 12+ 10/18/2020 10/18/2019, 03/10/2017, 02/21/2017 Tetanus booster 08/12/2022 08/12/2012 BMI (ht and wt on same day) for age 18+ 03/18/2023 03/18/2022, 10/18/2019, 02/21/2017, Additional history exists COVID-19 vaccine series ( season) 2023 03/02/2021 Influenza for age 50-64 07/18/2023 12/02/19 15, 08/26/2013, 08/12/2012, Additional history exists HIV for age 15-65 Completed 08/03/2012 Tdap Completed 08/12/2012 Pneumococcal series for age 6-64 Aged Out No longer eligible based on patient's age to complete this topic Advance Directives Latest Code Status on File Code Status Date Activated Date Inactivated Comments Full Code 01/10/2011 7:10 AM 01/10/2011 12:26 PM Care Teams Property Maintenance Supervisor Relationship Specialty Start Date End Date Votel, Johan [place] [address] PCP - General Family Practice 08/10/12
--- NOTE | 2023-12-04 16:00 | CRLHL7_ITS ---
For Patients: As a result of the Century Cures Act, medical imaging exams and procedure reports are released immediately into your electronic medical record. You may view this report before your referring provider. If you have questions, please contact your health care provider. INDICATION: Follow up of GE junction carcinoma TECHNIQUE: Volumetric helical scanning of the chest, abdomen and pelvis was performed with 92 cc of Isovue 370 contrast material IV. Coronal and sagittal reconstructions were obtained. COMPARISON: Chest/abdomen/pelvis CT 10/09/2023 FINDINGS: CHEST: As demonstrated previously, mild to moderate wall thickening of the distal esophagus and gastric cardia is noted. No mediastinal or hilar lymphadenopathy is demonstrated. Opacity previously demonstrated in both lower lobe bases is clearly improved but new small patchy ground-glass infiltrates have developed mostly in the mid to lower lungs bilaterally. These are nonspecific. No pleural effusions evident. The heart is normal in size. ABDOMEN/PELVIS: The liver is normal in size, shape and attenuation. The bile ducts are within normal limits. No lymphadenopathy is evident. No free fluid is demonstrated. The spleen, adrenal glands and pancreas are negative. The kidneys are unremarkable. The bowel is negative. The prostate is normal. No lytic or blastic bone lesion is identified. IMPRESSION: 1. Unchanged mild moderate wall thickening of the distal esophagus and gastric cardia. No metastatic lesion identified. 2. Bilateral lower lobe base opacity seen previously clearly improved but new nonspecific small patchy ground-glass infiltrates in the mid to lower lungs bilaterally. Please note that all CT scans at this facility use dose modulation, iterative reconstruction, and/or weight-based dosing when appropriate to reduce radiation dose to as low as reasonably achievable. Dictated by Juan Bob MD @ 12/05/2023 11:36:35 AM (Electronically Signed)
== END 2023-12-04 14:55 | disposition home or self-care (01) ==
LOC: CT 14:58
PROVIDERS: PCP Family Medicine; Visit Provider Internal Medicine Hematology & Oncology
DX: C16.0 Malignant neoplasm of cardia (principal)
CPT/HCPCS: 71260; 74177; T1013; Q9967

== ENCOUNTER 2024-01-16 09:00 | Outpatient (RCR) | payer BC, MEDICARE, OTHER, SELFPAY ==
[2023-09-01 15:26] LABS: Basophils Absolute Auto 0.03 K/uL (0.00-0.30); Basophils Percent Auto 0.5 % (0.0-3.0); Eosinophils Absolute Auto 0.07 K/uL (0.00-0.50); Eosinophils Percent Auto 1.1 % (0.0-7.0); Hematocrit 39.4 % (37.0-53.0); Hemoglobin* 12.8 gm/dL (13.5-17.5); Immature Granulocytes Abs Auto 0.06 K/uL (0.00-0.30); Immature Granulocytes Pct Auto 0.9 %; Lymphocytes Absolute Auto 1.58 K/uL (0.90-2.90); Lymphocytes Percent Auto 24.3 % (20-44); Mean Corpuscular HGB Conc 33 gm/dL (32-36); Mean Corpuscular Hemoglobin 28 pg (26-34); Mean Corpuscular Volume 86 fL (80-100); Monocytes Percent Auto 7.5 % (0.0-11.0); Neutrophils Absolute Auto 4.28 K/uL (1.7-7.0); Neutrophils Percent Auto 65.7 % (42.0-72.0); Platelet Count* 358 K/uL (140-440); RDW Coefficient of Variation % 12.6 % (11.5-15.5); Red Blood Count 4.57 m/uL (4.30-5.90); White Blood Count* 6.51 K/uL (4.50-11.00)
[2023-09-01 15:36] LABS: Slide Review Reflex No
[2023-09-01 15:42] LABS: Albumin* 3.7 g/dL (3.3-5.0)
[2023-09-01 15:43] LABS: Chloride* 101 mmol/L (96-114); Potassium* 3.9 mmol/L (3.6-5.1); Sodium* 135 mmol/L (135-149)
[2023-09-01 15:45] LABS: Anion Gap 9 mEq/L (7-15); Aspartate Amino Transferase* 36 U/L (12-35); Bilirubin Total* 0.6 mg/dL (0.1-1.5); Carbon Dioxide* 25 mmol/L (20-32); Creatinine* 0.9 mg/dL (0.5-1.5); Estimated Glomerular Filt Rate 96 ml/min
[2023-09-01 15:46] LABS: Alanine Aminotransferase* 34 U/L (4-50); Alkaline Phosphatase* 176 U/L (40-150); Blood Urea Nitrogen* 12 mg/dL (7-30); Calcium* 8.7 mg/dL (8.4-10.6); Glucose* 82 mg/dL (60-115); Total Protein* 6.8 g/dL (6.0-8.3)
[2023-09-16 16:16] LABS: Alkaline Phosphatase* 196 U/L (40-150)
--- NOTE | 2023-09-17 13:04 | ONC.NURNOTE ---
Dr. Henry reviewed alk phos results from yesterday. Order placed for MRI of abdomen to be done within the week. Script for omeprazole sent to pt's pharmacy by Dr. Henry. Sales Floor Team Member called lift mechanic to explain to pt he will need to have an MRI of his abdomen. Requested call back for appt of MRI in order to put on schedule for port access.
[2023-09-25 13:15] LABS: Cholesterol* 162 mg/dL (90-199)
[2023-09-25 13:16] LABS: HDL Cholesterol* 51 mg/dL (>=40); LDL Cholesterol Calculated 94 mg/dL (<100); Triglycerides* 84 mg/dL (40-149)
--- NOTE | 2023-09-29 10:55 | ONC.NURNOTE ---
Daughter phoned in to report that her father continues with hiccups and emesis even with gabapentin and zofran- taking both reportedly TID per ER- it was recommended that he either call [facility] to see Dr Lizama or another PCP today or go back to the ER for further evaluation of N/V Daughter states understanding
--- NOTE | 2023-10-01 14:58 | ONC.NURNOTE ---
Blood draw 10/14 @ 1330 confirmed via Slovak interpreters with patient.
--- NOTE | 2023-10-06 11:31 | PC.NURSE ---
Pt's daughter, Lindsay, called today to request a refill for Ondansetron. Per her report, pt has been having hiccups and is not nauseated and vomiting. He was given Zofran in the ER with no refills. Per Lindsay, Andry isn't eating, drinking, or working. RN discussed with MILLICENT Nielson and per Dr. Henry, pt is to follow-up with PCP or go to the ER. Communicated this to Lindsay and she verbalized understanding.
[2023-10-14 13:44] LABS: Alkaline Phosphatase* 77 U/L (40-150)
[2023-11-21] MEDS: HEPARIN 500 UNIT/5 ML SYRINGE IVF (15:16)
[2023-11-21] MEDS: SODIUM CHLORIDE 0.9 % (FLUSH) 10 ML SYRINGE IVF (15:16)
[2023-12-04 15:27] LABS: Basophils Absolute Auto 0.03 K/uL (0.00-0.30); Basophils Percent Auto 0.5 % (0.0-3.0); Eosinophils Absolute Auto 0.06 K/uL (0.00-0.50); Immature Granulocytes Abs Auto 0.03 K/uL (0.00-0.30); Immature Granulocytes Pct Auto 0.5 %; Lymphocytes Absolute Auto 2.21 K/uL (0.90-2.90); Lymphocytes Percent Auto 35.5 % (20-44); Mean Corpuscular HGB Conc 33 gm/dL (32-36); Mean Corpuscular Hemoglobin 28 pg (26-34); Mean Corpuscular Volume 85 fL (80-100); Monocytes Percent Auto 8.2 % (0.0-11.0); Neutrophils Absolute Auto 3.39 K/uL (1.7-7.0); Neutrophils Percent Auto 54.3 % (42.0-72.0); Platelet Count* 223 K/uL (140-440); RDW Coefficient of Variation % 17.4 % (11.5-15.5); Red Blood Count 5.09 m/uL (4.30-5.90); White Blood Count* 6.23 K/uL (4.50-11.00)
[2023-12-04 15:32] LABS: Slide Review Reflex No
[2023-12-04 15:45] LABS: Albumin* 4.1 g/dL (3.3-5.0); Chloride* 106 mmol/L (96-114); Potassium* 3.8 mmol/L (3.6-5.1); Sodium* 137 mmol/L (135-149)
[2023-12-04 15:47] LABS: Bilirubin Total* 0.7 mg/dL (0.1-1.5); Creatinine* 0.9 mg/dL (0.5-1.5); Estimated Glomerular Filt Rate 95 ml/min
[2023-12-04 15:48] LABS: Alanine Aminotransferase* 33 U/L (4-50); Alkaline Phosphatase* 96 U/L (40-150); Anion Gap 6 mEq/L (7-15); Aspartate Amino Transferase* 29 U/L (12-35); Blood Urea Nitrogen* 15 mg/dL (7-30); Calcium* 8.9 mg/dL (8.4-10.6); Carbon Dioxide* 25 mmol/L (20-32); Glucose* 88 mg/dL (60-115); Total Protein* 6.8 g/dL (6.0-8.3)
[2024-01-16] MEDS: SODIUM CHLORIDE 0.9 % (FLUSH) 10 ML SYRINGE IVF (08:57)
[2024-01-16] MEDS: HEPARIN 500 UNIT/5 ML SYRINGE IVF (08:57)
== END 2024-01-21 23:59 | disposition home or self-care (01) ==
LOC: CCIC 09:00
PROVIDERS: PCP Family Medicine; Referring Provider Family Medicine; Visit Provider Internal Medicine Hematology & Oncology
DX: C16.0 Malignant neoplasm of cardia (principal); C15.4 Malignant neoplasm of middle third of esophagus
CPT/HCPCS: 36415; 36591; 80053; 80061; 84075; 85025; 99211; 99212; 99213; 99214; G0463; T1013; J1642

== ENCOUNTER 2024-03-05 13:12 | Outpatient (CLI) | payer MEDICARE, OTHER, SELFPAY ==
[2024-03-05] MEDS: HEPARIN 500 UNIT/5 ML SYRINGE IVF (12:52)
[2024-03-05] MEDS: SODIUM CHLORIDE 0.9 % (FLUSH) 10 ML SYRINGE IVF (12:52)
--- OUTSIDE RECORDS SUMMARY | 2024-03-05 13:18 | XMS_ITS | Clinical Summary ---
Author Name Unknown Organization [facility] Address [place], [place] [address] Care Team Providers Care Java Sybase Developer Name Role Phone Votel, Johan Vinson MD Primary Care Provider + Allergies No known active allergies Medications Medication Sig Dispensed Refills Start Date End Date Status meclizine (ANTIVERT) 12.5 mg tabletIndications:Dizz iness Take 1 tablet by mouth 3 times daily if needed. 10 tablet 10/18/2019 Active lisinopriL (PRINIVIL; ZESTRIL) 20 mg tablet Take 20 mg by mouth once daily. 12/27/2021 Active omeprazole (PriLOSEC) 20 mg Delayed-Release [...] 02/21/2017, Additional history exists COVID-19 vaccine series (2022- season) 2023 03/02/2021 Influenza for age 50-64 07/18/2024 12/02/19 15, 08/26/2013, 08/12/2012, Additional history exists HIV for age 15-65 Completed 08/03/2012 Tdap Completed 08/12/2012 Pneumococcal series for age 6-64 Aged Out No longer eligible based on patient's age to complete this topic Procedures Procedure Name Priority Date/Time Associated Diagnosis Comments LIPID PANEL W REFLEX MEASURED LDL Routine 08/26/2013 10:12 AM CDT Other and unspecified hyperlipidemia ANTI HIV 1/2 Routine 08/03/2012 1:15 PM CDT Unspecified psychosis from Last 3 Months or Most Recently Relevant to Health Maintenance Results * (ABNORMAL) LIPID PANEL W REFLEX MEASURED LDL (08/26/2013 10:12 AM CDT) CHOLESTEROL,TOTAL 196 100 - 199 mg/dL 08/26/2013 10:41 AM [facility] TRIGLYCERIDES 126 <150 mg/dL 08/26/2013 10:41 AM [facility] HDL CHOLESTEROL 44 >40 mg/dL 3 10:41 AM [facility] NON-HDL CHOLESTEROL 152(H) <145 mg/dl 08/26/2013 10:41 AM [facility] CHOL/HDL RATIO 4.45 <4.50 08/26/2013 10:41 AM [facility] LDL CHOLESTEROL 127 <=130 mg/dL 08/26/2013 10:41 AM [facility] PATIENT STATUS NON-FASTI NG 08/26/2013 10:41 AM [facility] Blood specimen (specimen) BLOOD SPECIMEN / Unknown Venipuncture / Unknown 08/26/2013 10:12 AM CDT 08/26/2013 10:12 AM CDT Johan Stevenson MD CHEMISTRY [facility] [address] [place] [address] * ANTI HIV 1/2 (08/03/2012 1:15 PM CDT) ANTI HIV 1/2 Non-reacti ve [facility] Blood specimen (specimen) BLOOD SPECIMEN / Unknown 08/03/2012 1:15 PM CDT 08/03/2012 1:08 PM CDT Karol Corea SEND OUTS [facility] INTERNAL ZIP [id number] [place] [id number] from Last 3 Months or Most Recently Relevant to Health Maintenance Advance Directives * Full Code (Latest Code Status on File) Date Activated Date Inactivated Comments 01/10/2011 7:10 AM 01/10/2011 12:26 PM Care Teams Java Sybase Developer Relationship Specialty Start Date End Date Johan Stevenson MD [address] [place] [address] PCP - General Family Practice 08/10/12
[2024-03-05 13:46] LABS: Estimated Glomerular Filt Rate 84 ml/min
--- NOTE | 2024-03-05 14:00 | CT_ITS ---
Patient: WENDIE CLARK Facility:?[facility] Patient ID:?[id number] Site Patient ID:?[id number]. Site :?[id number] Study:?CT-Chest/Abd/Pelvis W/ 93CC ISOVUE 370-03/05/2024 2:39:19 PM Ordering Physician:LEDA Final Report: Indication: MALIGNANT NEOPLASM OF CARDIA-F/U ESOPHAGEAL CANCER Technique: CT Chest/Abd/Pelvis W/ 93CC ISOVUE 370 Please note that all CT scans at this facility use dose modulation, iterative reconstruction, and/or weight-based dosing when appropriate to reduce radiation dose to as low as reasonably achievable. Comparison: 12/04/2023, 10/09/2023 Findings: In the chest, the visualized thyroid is within normal limits. No enlarged intrathoracic lymph nodes. Patchy areas ill-defined pulmonary parenchymal scarring again noted bilaterally. No pleural effusion. No pneumothorax. Tiny nodular densities within the right lower lobe are similar. Stable calcified nodule within the anterior left upper lobe. Similar appearance of the distal esophagus with mild adjacent stranding and tiny paraesophageal lymph node. In the abdomen, there is no intrahepatic mass. The adrenal glands are normal. Normal kidneys. The spleen is unremarkable. Normal gallbladder. Pancreas is within normal limits. Stable appearance of the gastroesophageal junction. No gastric outlet obstruction. No enlarged upper abdominal lymph nodes. In the pelvis, prostate calcifications are present. The bladder is incompletely distended. No bowel obstruction or free air. No free fluid. No abscess. No enlarged lymph nodes. Appendix normal. Degenerative changes lumbar spine. No fracture. Impression: No significant change. Stable appearance of the distal esophagus/gastric cardia. No enlarged lymph nodes within the chest, abdomen or pelvis. Stable pulmonary parenchymal scarring bilaterally and tiny nodules in the right lower lobe. Please note that all CT scans at this facility use dose modulation, iterative reconstruction, and/or weight-based dosing when appropriate to reduce radiation dose to as low as reasonably achievable. Dictated by Abe Neff MD @ 03/08/2024 6:26:43 AM Signed by:?Abe Neff MD @03/08/2024 6:26:43 AM (Electronic Signature)
== END 2024-03-05 13:13 | disposition home or self-care (01) ==
PROVIDERS: PCP Family Medicine; Referring Provider Family Medicine; Visit Provider Internal Medicine Hematology & Oncology
DX: C16.0 Malignant neoplasm of cardia (principal); R91.8 Other nonspecific abnormal finding of lung field
CPT/HCPCS: 36415; 71260; 74177; 82565; T1013; Q9967

== ENCOUNTER 2024-06-18 13:58 | Outpatient (CLI) | payer MEDICARE, OTHER, SELFPAY ==
--- OUTSIDE RECORDS SUMMARY | 2024-06-18 14:00 | XMS_ITS | Clinical Summary ---
Author Organization [facility] Address [place], [place] [address] Care Team Providers Care Thermoforming Operator Name Role Phone Votel, Johan Vinson MD [...] 100 - 199 mg/dL 08/26/2013 10:41 AM [facility] TRIGLYCERIDES 126 <150 mg/dL 08/26/2013 10:41 AM [facility] HDL CHOLESTEROL 44 >40 mg/dL 3 10:41 AM [facility] NON-HDL CHOLESTEROL 152(H) <145 mg/dl 08/26/2013 10:41 AM [facility] CHOL/HDL RATIO 4.45 <4.50 08/26/2013 10:41 AM [facility] LDL CHOLESTEROL 127 <=130 mg/dL 08/26/2013 10:41 AM [facility] PATIENT STATUS NON-FASTI NG 08/26/2013 10:41 AM [facility] Blood specimen (specimen) BLOOD SPECIMEN / Unknown Venipuncture / Unknown 08/26/2013 10:12 AM CDT 08/26/2013 10:12 AM CDT Johan Stevenson MD CHEMISTRY [facility] [address] [place] [address] * ANTI HIV 1/2 (08/03/2012 1:15 PM CDT) ANTI HIV 1/2 Non-reacti ve [facility] Blood specimen (specimen) BLOOD SPECIMEN / Unknown 08/03/2012 1:15 PM CDT 08/03/2012 1:08 PM CDT Karol Corea SEND OUTS [facility] INTERNAL ZIP [id number] [place] [id number] from Last 3 Months or Most Recently Relevant to Health Maintenance Advance Directives * Full Code (Latest Code Status on File) Date Activated Date Inactivated Comments 01/10/2011 7:10 AM 01/10/2011 12:26 PM Care Teams Thermoforming Operator Relationship Specialty Start Date End Date Johan Stevenson MD [address] [place] [address] PCP - General Family Practice 08/10/12
--- NOTE | 2024-06-18 14:30 | CRLHL7_ITS ---
For Patients: As a result of the Century Cures Act, medical imaging exams and procedure reports are released immediately into your electronic medical record. You may view this report before your referring provider. If you have questions, please contact your health care provider. INDICATION: Malignant neoplasm of cardia TECHNIQUE: Multiplanar imaging of the abdomen was performed without and with 20 cc of Dotarem contrast material IV. COMPARISON: Chest/abdomen/pelvis CT of 06/02/2023 FINDINGS: Distal esophageal wall thickening demonstrated on the previous CT not clearly evident today. No diffusion restriction is evident in this region nor in. The liver is normal in size, shape and signal. No abnormal contrast enhancement is demonstrated in the liver. The bile ducts are normal in caliber. The spleen, adrenal glands and pancreas are within normal limits. The kidneys are unremarkable. No lymphadenopathy is apparent. No intrinsic bowel abnormality is evident. No free fluid is demonstrated. IMPRESSION: Negative MRI of the liver and abdomen. No metastatic lesions evident. Previously demonstrated distal esophageal wall thickening no longer evident. Dictated by Juan Bob MD @ 06/20/2024 7:33:17 AM (Electronically Signed)
== END 2024-06-18 13:59 | disposition home or self-care (01) ==
LOC: MRI 13:58
PROVIDERS: PCP Family Medicine; Visit Provider Internal Medicine Hematology & Oncology
DX: C16.0 Malignant neoplasm of cardia (principal)
CPT/HCPCS: 74183; T1013; A9575

== ENCOUNTER 2024-08-27 14:45 | Outpatient (RCR) | payer MEDICARE, OTHER, SELFPAY ==
[2024-03-08 16:09] LABS: Albumin* 4.1 g/dL (3.3-5.0); Basophils Absolute Auto 0.02 K/uL (0.00-0.30); Basophils Percent Auto 0.3 % (0.0-3.0); Chloride* 112 mmol/L (96-114); Eosinophils Absolute Auto 0.05 K/uL (0.00-0.50); Eosinophils Percent Auto 0.8 % (0.0-7.0); Hematocrit 43.6 % (37.0-53.0); Hemoglobin* 14.1 gm/dL (13.5-17.5); Immature Granulocytes Abs Auto 0.01 K/uL (0.00-0.30); Immature Granulocytes Pct Auto 0.2 %; Lymphocytes Absolute Auto 2.22 K/uL (0.90-2.90); Lymphocytes Percent Auto 34.4 % (20-44); Mean Corpuscular HGB Conc 32 gm/dL (32-36); Mean Corpuscular Hemoglobin 28 pg (26-34); Mean Corpuscular Volume 88 fL (80-100); Monocytes Percent Auto 8.8 % (0.0-11.0); Neutrophils Absolute Auto 3.58 K/uL (1.7-7.0); Neutrophils Percent Auto 55.5 % (42.0-72.0); Platelet Count* 223 K/uL (140-440); RDW Coefficient of Variation % 14.1 % (11.5-15.5); Red Blood Count 4.97 m/uL (4.30-5.90); White Blood Count* 6.45 K/uL (4.50-11.00)
[2024-03-08 16:10] LABS: Potassium* 4.1 mmol/L (3.6-5.1); Sodium* 138 mmol/L (135-149)
[2024-03-08 16:12] LABS: Alkaline Phosphatase* 81 U/L (40-150); Anion Gap -1 mEq/L (7-15); Aspartate Amino Transferase* 32 U/L (12-35); Bilirubin Total* 0.6 mg/dL (0.1-1.5); Blood Urea Nitrogen* 17 mg/dL (7-30); Carbon Dioxide* 27 mmol/L (20-32); Estimated Glomerular Filt Rate 84 ml/min; Total Protein* 6.6 g/dL (6.0-8.3)
[2024-03-08 16:13] LABS: Alanine Aminotransferase* 28 U/L (4-50); Calcium* 8.8 mg/dL (8.4-10.6); Glucose* 92 mg/dL (60-115)
[2024-03-08 16:18] LABS: Slide Review Reflex No
[2024-03-11] MEDS: HEPARIN IVF (13:57)
[2024-03-11] MEDS: SODIUM CHLORIDE 0.9 % (FLUSH) 10 ML SYRINGE IVF (13:57)
--- NOTE | 2024-03-15 14:05 | ONC.NURNOTE ---
mailed patient letter to Andry 03/15/24.
[2024-05-14] MEDS: SODIUM CHLORIDE 0.9 % (FLUSH) 10 ML SYRINGE IVF (14:08)
[2024-05-14] MEDS: HEPARIN 500 UNIT/5 ML SYRINGE IVF (14:25)
[2024-06-04 13:52] LABS: Basophils Percent Auto 0.5 % (0.0-3.0); Eosinophils Percent Auto 1.6 % (0.0-7.0); Hematocrit 44.3 % (37.0-53.0); Hemoglobin* 14.3 gm/dL (13.5-17.5); Lymphocytes Percent Auto 46.2 % (20-44); Mean Corpuscular HGB Conc 32 gm/dL (32-36); Mean Corpuscular Hemoglobin 28 pg (26-34); Mean Corpuscular Volume 87 fL (80-100); Neutrophils Percent Auto 42.7 % (42.0-72.0); Platelet Count* 188 K/uL (140-440); RDW Coefficient of Variation % 14.1 % (11.5-15.5); Red Blood Count 5.08 m/uL (4.30-5.90); White Blood Count* 4.44 K/uL (4.50-11.00)
[2024-06-04 14:02] LABS: Slide Review Reflex No
[2024-06-04 14:08] LABS: Albumin* 3.9 g/dL (3.3-5.0); Chloride* 107 mmol/L (96-114); Sodium* 136 mmol/L (135-149)
[2024-06-04 14:09] LABS: Potassium* 3.9 mmol/L (3.6-5.1)
[2024-06-04 14:11] LABS: Alanine Aminotransferase* 24 U/L (4-50); Alkaline Phosphatase* 77 U/L (40-150); Anion Gap 4 mEq/L (7-15); Aspartate Amino Transferase* 36 U/L (12-35); Bilirubin Total* 1.1 mg/dL (0.1-1.5); Blood Urea Nitrogen* 18 mg/dL (7-30); Calcium* 8.6 mg/dL (8.4-10.6); Carbon Dioxide* 25 mmol/L (20-32); Creatinine* 0.9 mg/dL (0.5-1.5); Estimated Glomerular Filt Rate 95 ml/min; Glucose* 89 mg/dL (60-115); Total Protein* 6.3 g/dL (6.0-8.3)
[2024-06-04] MEDS: HEPARIN 500 UNIT/5 ML SYRINGE IVF (15:16)
[2024-06-04] MEDS: SODIUM CHLORIDE 0.9 % (FLUSH) 10 ML SYRINGE IVF (15:16)
[2024-07-30] MEDS: SODIUM CHLORIDE 0.9 % (FLUSH) 10 ML SYRINGE IVF (13:01)
[2024-07-30] MEDS: HEPARIN 500 UNIT/5 ML SYRINGE IVF (13:01)
[2024-08-27 14:57] LABS: Basophils Absolute Auto 0.03 K/uL (0.00-0.30); Basophils Percent Auto 0.6 % (0.0-3.0); Eosinophils Absolute Auto 0.08 K/uL (0.00-0.50); Eosinophils Percent Auto 1.5 % (0.0-7.0); Hematocrit 45.2 % (37.0-53.0); Hemoglobin* 14.6 gm/dL (13.5-17.5); Immature Granulocytes Abs Auto 0.02 K/uL (0.00-0.30); Immature Granulocytes Pct Auto 0.4 %; Lymphocytes Absolute Auto 1.98 K/uL (0.90-2.90); Lymphocytes Percent Auto 36.3 % (20-44); Mean Corpuscular HGB Conc 32 gm/dL (32-36); Mean Corpuscular Hemoglobin 29 pg (26-34); Mean Corpuscular Volume 88 fL (80-100); Monocytes Percent Auto 8.3 % (0.0-11.0); Neutrophils Absolute Auto 2.89 K/uL (1.7-7.0); Neutrophils Percent Auto 52.9 % (42.0-72.0); Platelet Count* 187 K/uL (140-440); RDW Coefficient of Variation % 14.2 % (11.5-15.5); Red Blood Count 5.12 m/uL (4.30-5.90); White Blood Count* 5.45 K/uL (4.50-11.00)
[2024-08-27 15:00] LABS: Slide Review Reflex No
[2024-08-27 15:08] LABS: Albumin* 4.1 g/dL (3.3-5.0); Chloride* 104 mmol/L (96-114); Potassium* 3.8 mmol/L (3.6-5.1); Sodium* 136 mmol/L (135-149)
[2024-08-27 15:10] LABS: Anion Gap 7 mEq/L (7-15); Bilirubin Total* 0.6 mg/dL (0.1-1.5); Carbon Dioxide* 25 mmol/L (20-32); Estimated Glomerular Filt Rate 84 ml/min
[2024-08-27 15:11] LABS: Alanine Aminotransferase* 32 U/L (4-50); Alkaline Phosphatase* 77 U/L (40-150); Aspartate Amino Transferase* 33 U/L (12-35); Blood Urea Nitrogen* 21 mg/dL (7-30); Calcium* 8.7 mg/dL (8.4-10.6); Glucose* 89 mg/dL (60-115); Total Protein* 6.5 g/dL (6.0-8.3)
== END 2024-09-04 23:59 | disposition home or self-care (01) ==
LOC: CCIC 14:45
PROVIDERS: PCP Family Medicine; Referring Provider Family Medicine; Visit Provider Internal Medicine Hematology & Oncology
DX: C16.0 Malignant neoplasm of cardia (principal); C15.4 Malignant neoplasm of middle third of esophagus; D50.9 Iron deficiency anemia, unspecified; K21.9 Gastro-esophageal reflux disease without esophagitis
CPT/HCPCS: 36415; 36591; 71260; 74177; 80053; 85025; 99211; 99213; 99214; G0463; T1013; J1642; Q9967

== ENCOUNTER 2024-11-08 09:19 | Outpatient (CLI) | payer MEDICARE, SELFPAY | END 2024-11-08 09:20 | disposition home or self-care (01) | PROVIDERS: PCP Family Medicine; Visit Provider Family Medicine | DX: I10 Essential (primary) hypertension (principal); Z12.5 Encounter for screening for malignant neoplasm of prostate; Z13.6 Encounter for screening for cardiovascular disorders | CPT/HCPCS: 80053; 80061; G0103 ==

== ENCOUNTER 2024-12-03 07:47 | Outpatient (CLI) | payer MEDICARE, SELFPAY ==
--- NOTE | 2024-12-03 09:00 | CRLHL7_ITS ---
For Patients: As a result of the Century Cures Act, medical imaging exams and procedure reports are released immediately into your electronic medical record. You may view this report before your referring provider. If you have questions, please contact your health care provider. Indication: GASTRO-ESOPHAGEAL REFLUX DISEASE W/O ESOPHAGITIS, CANCER FOLLOW UP Technique: CT Chest, abdomen and pelvis 98CC ISOVUE [id number] Please note that all CT scans at this facility use dose modulation, iterative reconstruction, and/or weight-based dosing when appropriate to reduce radiation dose to as low as reasonably achievable. Comparison: 08/27/2025 Findings: In the chest, there is circumferential wall thickening of the distal esophagus. Mild stranding is present within the fat surrounding the gastroesophageal junction. Sub cm lymph nodes are also present in this location. Sub cm mediastinal lymph nodes. No nodule within the visualized thyroid. Subpleural nodule in the left upper lobe is unchanged. Other smaller subpleural densities are present elsewhere. Stable tiny nodule within the right lower lobe posteriorly. No fracture. In the abdomen, there is no intrahepatic mass. Gallbladder is similar. No biliary obstruction. Normal pancreas. Spleen normal. Normal adrenal glands. Kidneys are normal. No enlarged abdominal lymph nodes. In the pelvis, the bladder is partially distended. The prostate is heterogeneous with lobular mass effect upon the inferior bladder. No bowel obstruction, free air, free fluid or abscess. Bilateral fat filled inguinal hernias. A few scattered sub cm pelvic lymph nodes are present. Discogenic spurring lumbar spine. Facet degeneration lower lumbar spine. Impression: Circumferential wall thickening of the distal esophagus with a few scattered sub cm lymph nodes in the fat surrounding the GE junction along with mild curvilinear stranding. No suspicious pulmonary nodule. No enlarged lymph nodes within the mediastinum, abdomen or pelvis. Please note that all CT scans at this facility use dose modulation, iterative reconstruction, and/or weight-based dosing when appropriate to reduce radiation dose to as low as reasonably achievable. Dictated by Abe Neff MD @ 12/03/2024 1:32:18 PM (Electronically Signed)
== END 2024-12-03 07:48 | disposition home or self-care (01) ==
LOC: CT 07:49
PROVIDERS: PCP Family Medicine; Visit Provider Internal Medicine Hematology & Oncology
DX: K21.9 Gastro-esophageal reflux disease without esophagitis (principal); C16.0 Malignant neoplasm of cardia
CPT/HCPCS: 71260; 74177; T1013; Q9967

== ENCOUNTER 2025-02-18 08:20 | Outpatient (CLI) | payer MEDICARE, SELFPAY | END 2025-02-18 08:21 | disposition home or self-care (01) | LOC: NFLDREF 13:39 | PROVIDERS: PCP Family Medicine; Referring Provider Family Medicine; Visit Provider Family Medicine | DX: E78.5 Hyperlipidemia, unspecified (principal) | CPT/HCPCS: 80061; 84450; 84460 ==

== ENCOUNTER 2025-03-04 15:00 | Outpatient (RCR) | payer MEDICARE, SELFPAY ==
[2024-12-03 08:13] LABS: Basophils Percent Auto 0.6 % (0.0-3.0); Eosinophils Percent Auto 1.7 % (0.0-7.0); Hematocrit 45.8 % (37.0-53.0); Hemoglobin* 14.9 gm/dL (13.5-17.5); Immature Granulocytes Pct Auto 0.3 %; Lymphocytes Percent Auto 41.8 % (20-44); Mean Corpuscular HGB Conc 33 gm/dL (32-36); Mean Corpuscular Hemoglobin 29 pg (26-34); Mean Corpuscular Volume 88 fL (80-100); Monocytes Percent Auto 8.9 % (0.0-11.0); Neutrophils Percent Auto 46.7 % (42.0-72.0); Platelet Count* 205 K/uL (140-440); RDW Coefficient of Variation % 13.7 % (11.5-15.5); White Blood Count* 3.49 K/uL (4.50-11.00)
[2024-12-03 08:18] LABS: Slide Review Reflex No
[2024-12-03 08:33] LABS: Albumin* 3.9 g/dL (3.3-5.0); Chloride* 108 mmol/L (96-114)
[2024-12-03 08:34] LABS: Sodium* 137 mmol/L (135-149)
[2024-12-03 08:36] LABS: Alanine Aminotransferase* 21 U/L (4-50); Alkaline Phosphatase* 70 U/L (40-150); Anion Gap 3 mEq/L (7-15); Aspartate Amino Transferase* 26 U/L (12-35); Bilirubin Total* 0.9 mg/dL (0.1-1.5); Blood Urea Nitrogen* 21 mg/dL (7-30); Carbon Dioxide* 26 mmol/L (20-32); Est. Creatinine Clearance* 61.67; Estimated Glomerular Filt Rate 84 ml/min; Glucose* 101 mg/dL (60-115); Total Protein* 6.3 g/dL (6.0-8.3)
[2024-12-03 08:37] LABS: Calcium* 8.6 mg/dL (8.4-10.6)
[2025-03-04] MEDS: SODIUM CHLORIDE 0.9 % (FLUSH) 10 ML SYRINGE IVF (14:39)
[2025-03-04] MEDS: HEPARIN 500 UNIT/5 ML SYRINGE IVF (14:40)
== END 2025-03-05 23:59 | disposition home or self-care (01) ==
LOC: CCIC 15:00
PROVIDERS: PCP Family Medicine; Referring Provider Family Medicine; Visit Provider Internal Medicine Hematology & Oncology
DX: C16.0 Malignant neoplasm of cardia (principal); C15.4 Malignant neoplasm of middle third of esophagus
CPT/HCPCS: 36415; 36591; 71260; 74177; 80053; 85025; 99211; 99213; 99214; G0463; T1013; J1642; Q9967

== ENCOUNTER 2025-05-04 15:00 | Outpatient (RCR) | payer MEDICARE, SELFPAY ==
[2025-04-29] MEDS: SODIUM CHLORIDE 0.9 % (FLUSH) 10 ML SYRINGE IVF (12:05)
[2025-04-29] MEDS: HEPARIN 500 UNIT/5 ML SYRINGE IVF (12:05)
[2025-04-29 12:16] LABS: Hematocrit* 44.7 % (37.0-53.0); Hemoglobin* 14.5 gm/dL (13.5-17.5); Immature Granulocytes Abs Auto 0.01 K/uL (0.00-0.30); Immature Granulocytes Pct Auto 0.2 %; Lymphocytes Absolute Auto 1.80 K/uL (0.90-2.90); Mean Corpuscular HGB Conc 32 gm/dL (32-36); Mean Corpuscular Hemoglobin 29 pg (26-34); Mean Corpuscular Volume 88 fL (80-100); RDW Coefficient of Variation % 13.9 % (11.5-15.5); Red Blood Count* 5.06 m/uL (4.30-5.90); White Blood Count* 5.05 K/uL (4.50-11.00)
[2025-04-29 12:24] LABS: Slide Review Reflex No
[2025-04-29 12:29] LABS: Albumin* 4.1 g/dL (3.3-5.0); Chloride* 105 mmol/L (96-114); Sodium* 136 mmol/L (135-149)
[2025-04-29 12:30] LABS: Potassium* 4.0 mmol/L (3.6-5.1)
[2025-04-29 12:32] LABS: Alanine Aminotransferase* 27 U/L (4-50); Anion Gap 5 mEq/L (7-15); Aspartate Amino Transferase* 35 U/L (12-35); Blood Urea Nitrogen* 17 mg/dL (7-30); Carbon Dioxide* 26 mmol/L (20-32); Creatinine* 0.9 mg/dL (0.5-1.5); Estimated Glomerular Filt Rate 95 ml/min
[2025-04-29 12:33] LABS: Alkaline Phosphatase* 74 U/L (40-150); Bilirubin Total* 1.1 mg/dL (0.1-1.5); Calcium* 8.7 mg/dL (8.4-10.6); Glucose* 87 mg/dL (60-115); Total Protein* 6.6 g/dL (6.0-8.3)
[2025-04-29 13:33] LABS: Vitamin B12* > 1000 pg/mL (243-894)
== END 2025-10-26 23:59 | disposition home or self-care (01) ==
LOC: CCIC 15:00
PROVIDERS: PCP Family Medicine; Referring Provider Family Medicine; Visit Provider Internal Medicine Hematology & Oncology
DX: C16.0 Malignant neoplasm of cardia (principal); C15.4 Malignant neoplasm of middle third of esophagus
CPT/HCPCS: 36415; 36591; 71260; 74177; 80053; 82607; 85025; 99214; G0463; T1013; J1642; Q9967